=== PATIENT | female | born 1985 | race Two or more races ===

== ENCOUNTER 2024-12-03 19:45 | Inpatient (IN) | payer MEDICAID, OTHER ==
[~2024-12-03] VITALS: Ht 152.4 cm; Wt 59.6 kg
[~2024-12-03 19:45] MED LIST: DICY20TA PO; DIPH-751 PO; ESCI1TAB36 PO; GLIP5TAB21 PO; LISI-275 PO; METF-372 PO; SIMV5TAB14 PO
--- NOTE | 2024-12-03 20:09 | ED.PDOC ---
GI ASSESSMENT HPI Comments 39 year old female with a Hx of Celiac Disease, GERD, DM, Esophagitis, and Marijuana use presents to the ED for the c/c of Generalized Weakness w/ associated Hematemesis, N/V/D, Confusion, Slight Dysuria, and Diffuse ABD pain. Pt states that her symptoms started yesterday, and has since found no alleviating factors, but a worsening factor of sitting. Pt is noted to be vomiting blood at this time. Pt is noted to be A&Ox4, and answering questions a ppropriately, but is refusing to stay seated in her wheelchair. No other associated symptoms, modifiers, recent injuries or sick contacts present at this time. Chief Complaint: GI Bleed Time Seen by MD: 20:04 Primary Care Provider: CHARLES Hassan Notes: Nurses Notes, Medications, Allergies Allergies: Coded Allergies: Penicillins (Verified Allergy, Unknown, 12/03/24) Sulfa Antibiotics (Verified Allergy, Unknown, 12/03/24) Information Source: Patient, Spouse Mode of Arrival: Wheelchair Timing: Days Duration: Intermittent, Days Prehospital treatment: None Quality: Aching, Cramping Vomitus: Bloody Stool: Watery Severity: Moderate Recent: None Recent Hx of: Abdominal Operations, Diabetes Pain Location: Diffuse Modifying Factors: Exertion, Position, Movement Associated sign and symptoms: Nausea, Vomiting, Diarrhea, Hematemesis, Abdominal Pain Past Medical History PAST MEDICAL HISTORY: DM, GERD, High Lipids, HTN, Thyroid Past Medical History (Other): Celiac disease, esophagitis Surgical History: Cholecystectomy, Hysterectomy SCREENING TECHNICIAN History: No Pertinent SCREENING TECHNICIAN History Family History Family History: Family hx of DM Social History Smoker: Non-Smoker Alcohol: Denies ETOH Use Drugs: Marijuana Lives In: Home All Other Systems: Reviewed and Negative (Comprehensive systems review obtained and negative except for what is stated in the HPI.) Physical Exam General Appearance: Mild Distress HEENT: Other (Pupils and face symmetric. Moist mucous membranes.) Neck: Full Range of Motion, Normal Inspection Respiratory: Lungs Clear, No Accessory Muscle Use, No Respiratory Distress, Normal Breath Sounds Cardiovascular: No Edema, No JVD, Regular Rate/Rhythm Breast Exam: Deferred Gastrointestinal: Diffuse, Soft, Tenderness Genitalia: Deferred Pelvic: Deferred Rectal: Deferred Extremities: Normal inspection, Normal range of motion, Non-tender, No pedal edema Neurologic: Alert (Oriented x4), Normal Affect, Other (Anxious. Ambulatory.) Cerebellar Function: NOT DONE Reflexes: NOT DONE Skin: Dry, Normal Color, Warm Lymphatic: NOT DONE Was a procedure done? Was a procedure done?: No GI differential Dx Differential Diagnosis: Appendicitis, Angina/MA, Bowel Obstruction, Cholangitis, Diverticular disease, Esophageal rupture, Esophagitis, Gastritis/PUD, Gastroenteritis, GI hemorrhage, Hepatitis, Inflammatory BD, Pancreatitis, UTI, Dehydration, Diabetes/ DKA, Drug toxicity, Electrolyte Imbalance, Food Poisoning, Bacterial, Parasitic, Renal Failure, Ischemic Bowel, Mass, Anemia, Esophageal Varicies, Stress Ulcer X-Ray, Labs, Meds, VS Vital Signs Date Time Temp Pulse Resp B/P (MAP) Pulse Ox O2 Delivery O2 Flow Rate FiO2 12/03/24 23:29 175/91 12/03/24 21:47 67 12/03/24 21:06 121 20 147/114 12/03/24 20:45 98.8 121 20 147/114 (125) 98 98.8 12/03/24 20:45 Room Air* 0 21 12/03/24 19:47 98.9 110 18 151/110 96 98.9 Lab Test 12/03/24 23:11 12/03/24 22:05 12/03/24 21:13 12/03/24 20:21 Range/Units Troponin I High Sensitivity Pending 409 *H 357 *H </=34 ng/L Lactic Acid Level 3.3 *H 0.4-2.0 mmol/L White Blood Count 19.6 H 4.4-10.8 10^3/uL Red Blood Count 6.10 H 4.0-5.20 10^6/uL Hemoglobin 16.6 H 12.2-16.2 g/dL Hematocrit 48.2 H 36.0-46.0 % Mean Corpuscular Volume 79.1 L 80.0-100.0 fL Mean Corpuscular Hemoglobin 27.3 L 28.0-32.0 pg Mean Corpuscular Hemoglobin Concent 34.5 32.0-36.0 g/dL Red Cell Distribution Width 15.0 H 11.8-14.3 % Platelet Count 390 140-450 10^3/uL Mean Platelet Volume 9.9 6.9-10.8 fL Neutrophils (%) (Auto) 80.6 H 37.0-80.0 % Lymphocytes (%) (Auto) 10.0 10.0-50.0 % Monocytes (%) (Auto) 8.7 0.0-12.0 % Eosinophils (%) (Auto) 0.0 0.0-7.0 % Basophils (%) (Auto) 0.7 0.0-2.0 % Neutrophils # (Auto) 15.8 H 1.6-8.6 10 ^3/uL Lymphocytes # (Auto) 2.0 0.4-5.4 10 ^3/uL Monocytes # (Auto) 1.7 H 0-1.3 10 ^3/uL Eosinophils # (Auto) 0 0-0.8 10 ^3/uL Basophils # (Auto) 0.1 0-0.2 10 ^3/uL Nucleated Red Blood Cells 0.1 % Prothrombin Time 11.1 9.3-11.8 sec Prothrombin Time INR 1.05 0.9-1.15 Activated Partial Thromboplast Time 24.0 L 24.5-34.5 SEC Sodium Level 141 136-145 mmol/L Potassium Level 3.2 L 3.5-5.1 mmol/L Chloride Level 100 98-107 mmol/L Carbon Dioxide Level 23 20-31 mmol/L Anion Gap 18 H 5-15 Blood Urea Nitrogen 19 9-23 mg/dL Creatinine 1.52 H 0.550-1.02 mg/dL Glomerular Filtration Rate Calc 44 >90 mL/min BUN/Creatinine Ratio 12.5 10.0-20.0 Serum Glucose 206 H 74-106 mg/dL Calcium Level 11.0 H 8.7-10.4 mg/dL Total Bilirubin 1.0 0.2-1.0 mg/dL Aspartate Amino Transferase (AST) 23 13-40 U/L Alanine Aminotransferase (ALT) 22 7-40 U/L Alkaline Phosphatase 86 46-116 U/L B-Type Natriuretic Peptide 249.71 0-100 pg/mL Total Protein 8.3 H 5.7-8.2 g/dL Albumin 5.7 H 3.2-4.8 g/dL Lipase 53 12-53 U/L Current Medications Medications (Trade) Dose Ordered Sig/Zach Route Start Time Stop Time Status Last Admin Sodium Chloride 1,000 ml @ 150 mls/hr Q6H40M ONCE IV 12/03/24 20:00 12/04/24 02:39 12/03/24 21:06 Ondansetron HCl (Zofran) 4 mg ONCE ONCE IV 12/03/24 20:00 12/03/24 20:03 DC 12/03/24 21:05 Pantoprazole Sodium (Protonix) 40 mg ONCE ONCE IV 12/03/24 20:00 12/03/24 20:03 DC 12/03/24 21:05 Morphine Sulfate 4 mg ONCE ONCE IV 12/03/24 20:00 12/03/24 20:03 DC 12/03/24 21:06 Potassium Chloride (Klor-Con Tablet) 20 meq ONCE ONCE PO 12/03/24 22:15 12/03/24 22:42 DC 12/03/24 23:15 Amlodipine Besylate (Norvasc Tablet) 5 mg ONCE ONCE PO 12/03/24 22:15 12/03/24 22:42 DC 12/03/24 23:29 Metronidazole 100 ml @ 100 mls/hr ONCE ONCE IV 12/03/24 22:15 12/03/24 23:14 DC 12/03/24 23:02 Ondansetron HCl (Zofran) 4 mg Q4HP PRN IV 12/03/24 22:15 12/03/24 22:53 PROCEDURE(s): ABPL - CT AB PEL WO CON-NO ORAL OR IV REASON: ab pain, n/v/d, hematemesis ORDER NUMBER(s): [id number], ACCESSION NUMBER(s): [id number] Exam: CT CT AB PEL WO CON-NO ORAL OR IV History: ab pain, n/v/d, hematemesis Comparison Study: None Technique: Multidetector spiral CT of the abdomen was performed from lung bases to pubic symphysis. Imaging was performed without IV contrast. Axial, coronal and sagittal multiplanar reformats were obtained from the axial data set by the technologist. Radiation Dose : 1. Abdomen/Pelvis: CTDIvol 5.5 mGy, DLP 339.2 mGy*cm. Findings: Evaluation of solid organs is limited due to lack of intravenous contrast use. Lung Bases: Unremarkable. Liver: Unremarkable. Gallbladder and Biliary Tree: Post cholecystectomy changes. Spleen: Unremarkable. Pancreas: Mild atrophy. Adrenal Glands: Unremarkable Kidneys: No urinary stone or obstruction. Bladder: Mild posterior wall thickening is suggested. No filling defect. Bowel: No wall thickening or obstruction. Normal appendix. Ascites: Absent Lymphadenopathy: No obvious adenopathy. Abdominal Wall and Mesentery: Unremarkable. Vasculature: Unremarkable noncontrast appearance. Pelvic Organs: Absent uterus. No evident adnexal mass. Musculoskeletal: No acute findings. IMPRESSION: 1. No acute abdominopelvic abnormality, evidence of urinary stone or obstruction. Radiation optimization: All CT scans at this facility use at least one of these dose optimization techniques: automated exposure control mA and/or kV adjustment per patient size (includes targeted exams where dose is matched to clinical indication) or iterative reconstruction. X-Ray, Labs, Meds, VS Comment 89 year old female with a Hx of Celiac Disease, GERD, DM, Esophagitis, and Marijuana use presents to the ED for the c/c of Generalized Weakness w/ associated Hematemesis, N/V/D, Confusion, Slight Dysuria, and Diffuse ABD pain Initial vitals remarkable for heart rate 110, BP 150/110 Exam remarkable for diffuse abdominal tenderness and active with a emesis Rhythm strip independently interpreted by me: Sinus tach, rate 110, no ectopy. CT abdomen and pelvis IMPRESSION: 1. No acute abdominopelvic abnormality, evidence of urinary stone or obstruction. CBC remarkable for WBC 19.6, hemoglobin 6 15.6, hematocrit 48.2, CMP remarkable for for potassium 3.2, creatinine 1.52, lipase normal, BNP 249.71, troponin 357 Patient treated with the following in the ED: 30 cc/kilogram IV normal saline bolus, morphine 4 mg IV, Zofran 4 mg IV, Protonix 40 mg IV On re-evaluation, patient states pain has improved. Plan is to admit the patient for pain and emesis control, GI and Cardiology evaluation. Time of 1ST Reevaluation: 20:34 Reevaluation 1ST: Unchanged Patient Education/Counseling: Diagnosis, Treatment, Need For Follow Up Family Education/Counseling: Diagnosis, Treatment, Need For Follow Up SEPSIS Sepsis Screen Date sepsis recognized/suspect: Dec 03, 2024 Time Sepsis recognized/suspect: 1952 Recent Procedure: No On Antibiotic Therapy: No Respiratory Rate >20: No Heart Rate >90: No Temp<36 C (96.8 F) or >38.3 C: No SBP <90 or MAP <65 mmHG: No New Acute Mental Status Change: No Is the patient on CPAP, BIPAP,: No Physician Orders Urinalysis (12/03/24 19:59) Sodium Chloride 0.9% (12/03/24 20:00) Ct Ab Pel Wo Con-No Oral Or Iv (12/03/24 19:59) Troponin-I Hs (12/03/24 22:59) Blood Culture (12/03/24 21:41) Pantoprazole (Protonix) (12/04/24 10:00) Atorvastatin (Lipitor) (12/04/24 22:00) Metoprolol Tartrate Tablet (Lopressor Ta (12/04/24 10:00) Amlodipine Tablet (Norvasc Tablet) (12/04/24 10:00) Consistent Carb(Ccho)Diabetes (12/04/24 Breakfast) Metronidazole 500mg/100ml (Flagyl 500mg/ (12/04/24 06:00) Glucose Blood (Accu-Chek Comfort Curve T (12/04/24 07:00) Insulin R (Human) (Insulin R) (12/04/24 22:00) Insulin R (Human) (Insulin R) (12/04/24 07:00) Dextrose 50% Syringe (12/03/24 22:15) Allergies (12/03/24 22:01) Code Status (12/03/24 22:01) Sodium Chloride Lock (Saline Lock Ns) (12/04/24 06:00) Oxygen Per Hour (12/03/24 22:01) Hydrocodone-Acet 5/325mg Tab ([place] 5/32 (12/03/24 22:15) Ondansetron Hcl (Zofran) (12/03/24 22:15) Docusate Sodium Capsule (Colace Capsule) (12/03/24 22:15) Complete Blood Count (12/04/24 04:00) Comprehensive Metabolic Panel (12/04/24 04:00) Condition: Serious (12/03/24 22:01) Acetaminophen Tablet (Tylenol Tablet) (12/03/24 22:15) Bedrest With Bathroom Privileg (12/03/24 22:01) Sequential Compression Device (12/03/24 ) * Gi Dvh Comic Book Designer (12/03/24 22:18) Admit (12/03/24 23:35) Nitroglycerin Sublingual (Ntrostat Subli (12/03/24 23:45) Morphine Sulfate Injection (12/03/24 23:45) Stat Ekg For Chest Pain (12/03/24 23:35) Notify Of Changes From Base (12/03/24 23:35) Web Mobile Designer For 24 Hours (12/03/24 23:35) Emergency Dysrhythmia Protocol (12/03/24 23:35) Rhythm Strips Once Every Shift (12/03/24 23:35) Oxygen By Nasal Cannula (12/03/24 23:35) Vital Signs Date Time Temp Pulse Resp B/P (MAP) Pulse Ox O2 Delivery O2 Flow Rate FiO2 12/03/24 23:29 175/91 12/03/24 21:47 67 12/03/24 21:06 121 20 147/114 12/03/24 20:45 98.8 121 20 147/114 (125) 98 98.8 12/03/24 20:45 Room Air* 0 21 12/03/24 19:47 98.9 110 18 151/110 96 98.9 Laboratory Tests Test 12/03/24 20:21 12/03/24 22:05 White Blood Count 19.6 10^3/uL (4.4-10.8) H Lactic Acid Level 3.3 mmol/L (0.4-2.0) *H Medications Medications Dose Ordered Sig/Zach Route Start Time Stop Time Status Last Admin Dose Admin Amlodipine Besylate 5 mg ONCE ONCE PO 12/03/24 22:15 12/03/24 22:42 DC 12/03/24 23:29 Metronidazole 100 ml @ 100 mls/hr ONCE ONCE IV 12/03/24 22:15 12/03/24 23:14 DC 12/03/24 23:02 Morphine Sulfate 4 mg ONCE ONCE IV 12/03/24 20:00 12/03/24 20:03 DC 12/03/24 21:06 Ondansetron HCl 4 mg ONCE ONCE IV 12/03/24 20:00 12/03/24 20:03 DC 12/03/24 21:05 Ondansetron HCl 4 mg Q4HP PRN IV 12/03/24 22:15 12/03/24 22:53 Pantoprazole Sodium 40 mg ONCE ONCE IV 12/03/24 20:00 12/03/24 20:03 DC 12/03/24 21:05 Potassium Chloride 20 meq ONCE ONCE PO 12/03/24 22:15 12/03/24 22:42 DC 12/03/24 23:15 Sodium Chloride 1,000 ml @ 150 mls/hr Q6H40M ONCE IV 12/03/24 20:00 12/04/24 02:39 12/03/24 21:06 Departure 1 Departure Time of Disposition: 21:43 Impression: Primary Impression: Abdominal pain Additional Impressions: GI bleed Elevated troponin Disposition: ADMITTED INPATIENT Admit to: Tele Condition: Guarded Critical Care Note Critical Care Time?: Yes (45 min-critical care time only) Critical care comment: Critical care time including multiple bedside re-evaluations, review of lab and imaging studies, and discussion of the case with the admitting provider. Patient is high risk for hemodynamic decompensation. Stability Stability form required: No Heart Score Heart Score: Heart Score Response (Comments) Value History N/A 0 EKG N/A 0 Age N/A 0 Risk Factors N/A 0 Troponin N/A 0 Total 0 I personally scribed for JOCELYNE RAE MD ([email or web address]) on 12/03/24 at 20:09. Electronically submitted by Dominick Kim ([email or web address]). I personally scribed for JOCELYNE RAE MD ([email or web address]) on 12/03/24 at 23:40. Electronically submitted by Dominick Kim ([email or web address]). JOCELYNE RAE MD Dec 03, 2024 20:09
[2024-12-03 20:51] LABS: Hematocrit 48.2 % (36.0-46.0); Hemoglobin 16.6 g/dL (12.2-16.2); Mean Corpuscular Hemoglobin 27.3 pg (28.0-32.0); Mean Corpuscular Volume 79.1 fL (80.0-100.0); Nucleated Red Blood Cells % 0.1 %
[2024-12-03] MEDS: ONDANSETRON HCL 4 MG/2 ML VIAL IV ONE (21:05)
[2024-12-03] MEDS: PANTOPRAZOLE 40 MG/10 ML VIAL INJ IV ONE (21:05)
[2024-12-03] MEDS: MORPHINE SULFATE 4 MG/ML SYR/VIAL IV ONE (21:06)
[2024-12-03] MEDS: SODIUM CHLORIDE 0.9% 1,000 ML IV ONE (21:06)
[2024-12-03 21:07] LABS: INR 1.05 (0.9-1.15); Partial Thromboplastin Time 24.0 SEC (24.5-34.5); Prothrombin Time 11.1 sec (9.3-11.8)
[2024-12-03 21:08] LABS: Alanine Aminotransferase 22 U/L (7-40); Alkaline Phosphatase 86 U/L (46-116); Anion Gap 18 (5-15); BUN/Creatinine Ratio 12.5 (10.0-20.0); Blood Urea Nitrogen 19 mg/dL (9-23); Carbon Dioxide 23 mmol/L (20-31); Chloride 100 mmol/L (98-107); Sodium 141 mmol/L (136-145)
[2024-12-03 21:09] LABS: Bilirubin, Total 1.0 mg/dL (0.2-1.0)
[2024-12-03 21:12] LABS: Albumin 5.7 g/dL (3.2-4.8); Calcium 11.0 mg/dL (8.7-10.4); Glucose 206 mg/dL (74-106); Potassium 3.2 mmol/L (3.5-5.1); Total Protein 8.3 g/dL (5.7-8.2)
--- NOTE | 2024-12-03 22:03 | ECG ---
[facility] Test Date: 2024-12-03 Test Time: 21:47:49 Pat Name: DOROTHEA KENNEDY Department: ER Room: 0298T Gender: F Documentation Supervisor: ANGEL : 1985 Requested By: JOCELYNE CHANEL Order Number: [id number] Reading MD: Juan Royal Measurements Intervals Carbon Rate: 67 P: 78 NH: 134 QRS: 48 QRSD: 81 T: 37 QT: 595 QTc: 629 Interpretive Statements Sinus rhythm Probable left atrial enlargement Probable anteroseptal infarct, old Minimal ST depression, anterolateral leads Prolonged QT interval Electronically Signed On 12-06-2024 22:03:26 PDT by Juan Royal Please click the below link to view image of tracing.
[2024-12-03] MEDS ORDERED: DOCUSATE SOD 100 MG CAP PO PRN (22:15)
[2024-12-03] MEDS ORDERED: ACETAMINOPHEN 325 MG TAB PO PRN (22:15)
[2024-12-03] MEDS ORDERED: DEXTROSE (50%) 50ML SYRG IV PRN (22:15)
--- NOTE | 2024-12-03 22:15 | DVH ---
Exam: CT CT AB PEL WO CON-NO ORAL OR IV History: ab pain, n/v/d, hematemesis Comparison Study: None Technique: Multidetector spiral CT of the abdomen was performed from lung bases to pubic symphysis. I maging was performed without IV contrast. Axial, coronal and sagittal multiplanar reformats were obta ined from the axial data set by the technologist. Radiation Dose : 1. Abdomen/Pelvis: CTDIvol 5.5 mGy, DLP 339.2 mGy*cm. Findings: Evaluation of solid organs is limited due to lack of intravenous contrast use. Lung Bases: Unremarkable. Liver: Unremarkable. Gallbladder and Biliary Tree: Post cholecystectomy changes. Spleen: Unremarkable. Pancreas: Mild atrophy. Adrenal Glands: Unremarkable Kidneys: No urinary stone or obstruction. Bladder: Mild posterior wall thickening is suggested. No filling defect. Bowel: No wall thickening or obstruction. Normal appendix. Ascites: Absent Lymphadenopathy: No obvious adenopathy. Abdominal Wall and Mesentery: Unremarkable. Vasculature: Unremarkable noncontrast appearance. Pelvic Organs: Absent uterus. No evident adnexal mass. Musculoskeletal: No acute findings. IMPRESSION: 1. No acute abdominopelvic abnormality, evidence of urinary stone or obstruction. Radiation optimization: All CT scans at this facility use at least one of these dose optimization yoko hniques: automated exposure control mA and/or kV adjustment per patient size (includes targeted exam s where dose is matched to clinical indication) or iterative reconstruction.
[2024-12-03 22:40] VITALS: PULSE 89; RESP 16; O2SAT 99
[2024-12-03 22:46] LABS: Lactic Acid w/Reflex 3.3 mmol/L (0.4-2.0)
[2024-12-03] MEDS: ONDANSETRON HCL 4 MG/2 ML VIAL IV PRN (22:53)
[2024-12-03] MEDS ORDERED: ONDANSETRON HCL 4 MG/2 ML VIAL IV PRN (23:00)
[2024-12-03] MEDS: POTASSIUM CHL 20 Meq TABLET PO ONE (23:15)
--- NOTE | 2024-12-03 23:37 | DVHHP2 ---
History of Present Illness Reason for Visit: GI bleed History of Present Illness The patient is a 39-year-old female with multiple past medical history including DM, GERD, thyroid disease, and hypertension who presented to [facility] ED with complaint of generalized weakness. Patient reports she has been experiencing generalized weakness associated with diffuse abdominal pain rating 8/10 numeric scale, hematemesis, nausea, diarrhea, slight dysuria, and confusion state. Patient was seen and evaluated in the ED, laboratory data shows WBC 19.6, hemoglobin 16.6, hematocrit 48.2, platelets 390, sodium 141, potassium 3.2, BUN 19, creatinine 1.52, glucose 206, calcium 11.0, lipase 53, BNP 249.71, protein 8.3, albumin 5.7, troponin 409, lactic acid 3.3 trending down to 1.2, blood pressure 151/110 trending down to 155/91, heart rate 121 trending down to 80, temperature 98.8 F, O2 saturation 98% on room air. Abdomen/pelvis CT showed no acute abdominopelvic abnormality, evidence of urinary stones obstruction. Patient was given morphine sulfate 4 mg IV, Zofran 4 mg IV, please see medication orders section in the computer. On my assessment, patient denied chest pain, no headache, no dizziness, no diaphoresis, no shortness of breaths, no abdominal pain at this moment, no nausea, no vomiting, no fever, no chills. Patient was admitted for further evaluation and medical management. Past Medical History DM, GERD, High Lipids, HTN, Thyroid, Celiac disease, esophagitis Past Surgical History Cholecystectomy, Hysterectomy Family History Reviewed, noncontributory to the management of this case. Past Social History The patient lives at home, denies smoking, denies alcohol use, uses marijuana. Review of Systems Constitutional: Yes: Weakness; No: Fever, Chills, Sweats, Malaise, Other Eyes: No: Pain, Vision change, Conjunctivae inflammation, Eyelid inflammation, Other, Redness ENT: No: Ear pain, Ear discharge, Nose pain, Nose discharge, Nose congestion, Mouth pain, Mouth swelling, Throat pain, Throat swelling, Other Respiratory: No: Cough, Dry, Shortness of breath, SOB with excertion, Wheezing, Hemoptysis, Pleuritic Pain, Sputum, Wheezing, Other Cardiovascular: No: Chest Pain, Palpitations, Orthopnea, Paroxysmal Noc. Dyspnea, Edema, Lt Headedness, Other Gastrointestinal: Nausea, Vomiting, Abdominal Pain, Other (Hematemesis); No: Diarrhea, Constipation, Melena, Hematochezia Genitourinary: Dysuria; No Frequency, No Incontinence, No Hematuria, No Retention, No Other Musculoskeletal: No: other, neck pain, shoulder pain, arm pain, back pain, hand pain, leg pain, foot pain Skin: No: Rash, Lesions, Jaundice, Bruising, Other Neurological: No: Weakness, Numbness, Incoordination, Change in speech, Confusi on, Seizures, Other Allergies: Coded Allergies: Penicillins (Verified Allergy, Unknown, 12/03/24) Sulfa Antibiotics (Verified Allergy, Unknown, 12/03/24) Medications Current Medications Medications Dose Ordered Sig/Zach Route Start Time Stop Time Status Last Admin Dose Admin Pantoprazole Sodium 40 mg BID IV 12/04/24 10:00 Atorvastatin Calcium 20 mg HS PO 12/04/24 22:00 Metoprolol Tartrate 25 mg BID PO 12/04/24 10:00 Amlodipine Besylate 5 mg DAILY PO 12/04/24 10:00 Metronidazole 100 ml @ 100 mls/hr Q8HR IV 12/04/24 06:00 Diagnostic Test (Pha) 1 strip ACHS 12/04/24 07:00 Insulin Human Regular HS SC 12/04/24 22:00 Insulin Human Regular AC SC 12/04/24 07:00 Dextrose 50 ml UD PRN IV 12/03/24 22:15 Sodium Chloride 10 ml Q8HR IV 12/04/24 06:00 Acetaminophen/ Hydrocodone Bitart 1 tab Q4HP PRN PO 12/03/24 22:15 Ondansetron HCl 4 mg Q4HP PRN IV 12/03/24 22:15 12/03/24 22:53 4 MG Docusate Sodium 100 mg BIDPRN PRN PO 12/03/24 22:15 Acetaminophen 650 mg Q6HP PRN PO 12/03/24 22:15 Exam Vital Signs Vital Signs Date Time Temp Pulse Resp B/P (MAP) Pulse Ox O2 Delivery O2 Flow Rate FiO2 12/03/24 23:29 175/91 12/03/24 21:47 67 12/03/24 21:06 20 12/03/24 20:45 98.8 98 98.8 12/03/24 20:45 Room Air* 0 21 General Appearance: Alert, Oriented X3, Cooperative, No acute distress HEENT: Atraumatic, PERRLA, EOMI, Mucous membr. moist/pink Respiratory: Clear to auscultation, Normal air movement Cardiovascular: Regular rate, Normal S1, Normal S2, No murmurs Abdominal: Normal bowel sounds, Soft, No hepatospenomegaly, No masses, Other (Reports tenderness) Extremities: No clubbing, No cyanosis, No edema, Normal pulses, No tenderness/swelling Skin: No rashes, No breakdown, No significant lesion Neuro: Normal speech, Normal tone, Sensation intact, Cranial nerves 3-12 NL, Reflexes 2+, Other (Generalized weakness) Psych/Mental Status: Mental status NL, Mood NL Labs/Xrays Labs Test 12/03/24 23:11 12/03/24 22:05 12/03/24 20:21 Range/Units Lactic Acid Level 3.3 *H 0.4-2.0 mmol/L White Blood Count 19.6 H 4.4-10.8 10^3/uL Red Blood Count 6.10 H 4.0-5.20 10^6/uL Hemoglobin 16.6 H 12.2-16.2 g/dL Hematocrit 48.2 H 36.0-46.0 % Mean Corpuscular Volume 79.1 L 80.0-100.0 fL Mean Corpuscular Hemoglobin 27.3 L 28.0-32.0 pg Mean Corpuscular Hemoglobin Concent 34.5 32.0-36.0 g/dL Red Cell Distribution Width 15.0 H 11.8-14.3 % Platelet Count 390 140-450 10^3/uL Mean Platelet Volume 9.9 6.9-10.8 fL Neutrophils (%) (Auto) 80.6 H 37.0-80.0 % Lymphocytes (%) (Auto) 10.0 10.0-50.0 % Monocytes (%) (Auto) 8.7 0.0-12.0 % Eosinophils (%) (Auto) 0.0 0.0-7.0 % Basophils (%) (Auto) 0.7 0.0-2.0 % Neutrophils # (Auto) 15.8 H 1.6-8.6 10 ^3/uL Lymphocytes # (Auto) 2.0 0.4-5.4 10 ^3/uL Monocytes # (Auto) 1.7 H 0-1.3 10 ^3/uL Eosinophils # (Auto) 0 0-0.8 10 ^3/uL Basophils # (Auto) 0.1 0-0.2 10 ^3/uL Nucleated Red Blood Cells 0.1 % Prothrombin Time 11.1 9.3-11.8 sec Prothrombin Time INR 1.05 0.9-1.15 Activated Partial Thromboplast Time 24.0 L 24.5-34.5 SEC Sodium Level 141 136-145 mmol/L Potassium Level 3.2 L 3.5-5.1 mmol/L Chloride Level 100 98-107 mmol/L Carbon Dioxide Level 23 20-31 mmol/L Anion Gap 18 H 5-15 Blood Urea Nitrogen 19 9-23 mg/dL Creatinine 1.52 H 0.550-1.02 mg/dL Glomerular Filtration Rate Calc 44 >90 mL/min BUN/Creatinine Ratio 12.5 10.0-20.0 Serum Glucose 206 H 74-106 mg/dL Calcium Level 11.0 H 8.7-10.4 mg/dL Total Bilirubin 1.0 0.2-1.0 mg/dL Aspartate Amino Transferase (AST) 23 13-40 U/L Alanine Aminotransferase (ALT) 22 7-40 U/L Alkaline Phosphatase 86 46-116 U/L B-Type Natriuretic Peptide 249.71 0-100 pg/mL Total Protein 8.3 H 5.7-8.2 g/dL Albumin 5.7 H 3.2-4.8 g/dL Lipase 53 12-53 U/L PATIENT: DOROTHEA KENNEDY ACCT: [id number] UNIT: [id number] : 1985 LOC: ER ROOM / BED: / AGE / SEX: 39 / F ADM STATUS: REG ER SERVICE 58 ORDERING PHYSICIAN: JOCELYNE RAE MD PROCEDURE(s): ABPL - CT AB PEL WO CON-NO ORAL OR IV REASON: ab pain, n/v/d, hematemesis ORDER NUMBER(s): [id number], ACCESSION NUMBER(s): [id number] Exam: CT CT AB PEL WO CON-NO ORAL OR IV History: ab pain, n/v/d, hematemesis Comparison Study: None Technique: Multidetector spiral CT of the abdomen was performed from lung bases to pubic symphysis. Imaging was performed without IV contrast. Axial, coronal and sagittal multiplanar reformats were obtained from the axial data set by the technologist. Radiation Dose: 1. Abdomen/Pelvis: CTDIvol 5.5 mGy, DLP 339.2 mGy*cm. Findings: Evaluation of solid organs is limited due to lack of intravenous contrast use. Lung Bases: Unremarkable. Liver: Unremarkable. Gallbladder and Biliary Tree: Post cholecystectomy changes. Spleen: Unremarkable. Pancreas: Mild atrophy. Adrenal Glands: Unremarkable Kidneys: No urinary stone or obstruction. Bladder: Mild posterior wall thickening is suggested. No filling defect. Bowel: No wall thickening or obstruction. Normal appendix. Ascites: Absent Lymphadenopathy: No obvious adenopathy. Abdominal Wall and Mesentery: Unremarkable. Vasculature: Unremarkable noncontrast appearance. Pelvic Organs: Absent uterus. No evident adnexal mass. Musculoskeletal: No acute findings. IMPRESSION: 1. No acute abdominopelvic abnormality, evidence of urinary stone or obstruction. SEPSIS Sepsis Screen Date sepsis recognized/suspect: Dec 03, 2024 Time Sepsis recognized/suspect: 1952 Recent Procedure: No On Antibiotic Therapy: No Respiratory Rate >20: No Heart Rate >90: No Temp<36 C (96.8 F) or >38.3 C: No SBP <90 or MAP <65 mmHG: No New Acute Mental Status Change: No Is the patient on CPAP, BIPAP,: No Physician Orders Urinalysis (12/03/24 19:59) Sodium Chloride 0.9% (12/03/24 20:00) Ct Ab Pel Wo Con-No Oral Or Iv (12/03/24 19:59) Troponin-I Hs (12/03/24 22:59) Blood Culture (12/03/24 21:41) Pantoprazole (Protonix) (12/04/24 10:00) Atorvastatin (Lipitor) (12/04/24 22:00) Metoprolol Tartrate Tablet (Lopressor Ta (12/04/24 10:00) Amlodipine Tablet (Norvasc Tablet) (12/04/24 10:00) Consistent Carb(Ccho)Diabetes (12/04/24 Breakfast) Metronidazole 500mg/100ml (Flagyl 500mg/ (12/04/24 06:00) Glucose Blood (Accu-Chek Comfort Curve T (12/04/24 07:00) Insulin R (Human) (Insulin R) (12/04/24 22:00) Insulin R (Human) (Insulin R) (12/04/24 07:00) Dextrose 50% Syringe (12/03/24 22:15) Allergies (12/03/24 22:01) Code Status (12/03/24 22:01) Sodium Chloride Lock (Saline Lock Ns) (12/04/24 06:00) Oxygen Per Hour (12/03/24 22:01) Hydrocodone-Acet 5/325mg Tab ([place] 5/32 (12/03/24 22:15) Ondansetron Hcl (Zofran) (12/03/24 22:15) Docusate Sodium Capsule (Colace Capsule) (12/03/24 22:15) Complete Blood Count (12/04/24 04:00) Comprehensive Metabolic Panel (12/04/24 04:00) Condition: Serious (12/03/24 22:01) Acetaminophen Tablet (Tylenol Tablet) (12/03/24 22:15) Bedrest With Bathroom Privileg (12/03/24 22:01) Sequential Compression Device (12/03/24 ) * [facility] Clinical Support Tech (12/03/24 22:18) Admit (12/03/24 23:35) Nitroglycerin Sublingual (Ntrostat Subli (12/03/24 23:45) Morphine Sulfate Injection (12/03/24 23:45) Stat Ekg For Chest Pain (12/03/24 23:35) Notify Md Of Changes From Base (12/03/24 23:35) Geotechnical Engineer For 24 Hours (12/03/24 23:35) Emergency Dysrhythmia Protocol (12/03/24 23:35) Rhythm Strips Once Every Shift (12/03/24 23:35) Oxygen By Nasal Cannula (12/03/24 23:35) Vital Signs Date Time Temp Pulse Resp B/P (MAP) Pulse Ox O2 Delivery O2 Flow Rate FiO2 12/03/24 23:29 175/91 12/03/24 21:47 67 12/03/24 21:06 121 20 147/114 12/03/24 20:45 98.8 121 20 147/114 (125) 98 98.8 12/03/24 20:45 Room Air* 0 21 12/03/24 19:47 98.9 110 18 151/110 96 98.9 Laboratory Tests Test 12/03/24 20:21 12/03/24 22:05 White Blood Count 19.6 10^3/uL (4.4-10.8) H Lactic Acid Level 3.3 mmol/L (0.4-2.0) *H Medications Medications Dose Ordered Sig/Zach Route Start Time Stop Time Status Last Admin Dose Admin Amlodipine Besylate 5 mg ONCE ONCE PO 12/03/24 22:15 12/03/24 22:42 DC 12/03/24 23:29 5 MG Metronidazole 100 ml @ 100 mls/hr ONCE ONCE IV 12/03/24 22:15 12/03/24 23:14 DC 12/03/24 23:02 100 MLS/HR Morphine Sulfate 4 mg ONCE ONCE IV 12/03/24 20:00 12/03/24 20:03 DC 12/03/24 21:06 4 MG Ondansetron HCl 4 mg ONCE ONCE IV 12/03/24 20:00 12/03/24 20:03 DC 12/03/24 21:05 4 MG Ondansetron HCl 4 mg Q4HP PRN IV 12/03/24 22:15 12/03/24 22:53 4 MG Pantoprazole Sodium 40 mg ONCE ONCE IV 12/03/24 20:00 12/03/24 20:03 DC 12/03/24 21:05 40 MG Potassium Chloride 20 meq ONCE ONCE PO 12/03/24 22:15 12/03/24 22:42 DC 12/03/24 23:15 20 MEQ Sodium Chloride 1,000 ml @ 150 mls/hr Q6H40M ONCE IV 12/03/24 20:00 12/04/24 02:39 12/03/24 21:06 150 MLS/HR Assessment/Plan Assessment/Plan Acute abdominal pain GI bleed Hypokalemia Acute renal injury Generalized weakness Elevated troponin Elevated brain natriuretic peptide (BNP) level Sepsis, unspecified organisms Diabetes mellitus with hyperglycemia Plan 1. Admit to telemetry unit 2. Breathing treatment 3. Pain control management 4. IV antibiotic management 5. Management of fluids and electrolytes 6. Consultation for Cardiology/GI 7. Diagnostic test abdomen/pelvis CT 8. DVT prophylaxis on SCDs 9. Repeat labs CBC, CMP in a.m. 10. Home medication reviewed and reconciled 11. Continue with current medical management 12. Treatment plan discussed with patient and RN. Patient verbalized understanding. Plan discussed with: Patient, Other (RN) My Orders Orders - ALEXA MCGRAW DNP Procedure Category Date Status Time Pantoprazole PHA 12/04/24 In Process (Protonix) 10:00 Atorvastatin (Lipitor) PHA 12/04/24 In Process 22:00 Metoprolol Tartrate PHA 12/04/24 In Process Tablet (Lopressor Ta 10:00 Amlodipine Tablet PHA 12/04/24 In Process (Norvasc Tablet) 10:00 Consistent DIET 12/04/24 Transmitted Carb(Ccho)Diabetes Breakfast Metronidazole PHA 12/04/24 In Process 500mg/100ml (Flagyl 06:00 Glucose Blood PHA 12/04/24 In Process (Accu-Chek Comfort 07:00 Insulin R (Human) PHA 12/04/24 In Process (Insulin R) 22:00 Insulin R (Human) PHA 12/04/24 In Process (Insulin R) 07:00 Dextrose 50% Syringe PHA 12/03/24 In Process 22:15 Allergies DARSHANA 12/03/24 In Process 22:01 Code Status CODE 12/03/24 Transmitted 22:01 Sodium Chloride Lock PHA 12/04/24 In Process (Saline Lock Ns) 06:00 Oxygen Per Hour RT 12/03/24 Transmitted 22:01 Hydrocodone-Acet PHA 12/03/24 In Process 5/325mg Tab ([place]aver 22:15 Ondansetron Hcl PHA 12/03/24 In Process (Zofran) 22:15 Docusate Sodium PHA 12/03/24 In Process Capsule (Colace 22:15 Complete Blood Count LAB 12/04/24 Verified 04:00 Comprehensive LAB 12/04/24 Verified Metabolic Panel 04:00 Condition: Serious DARSHANA 12/03/24 In Process 22:01 Acetaminophen Tablet PHA 12/03/24 In Process (Tylenol Tablet) 22:15 Bedrest With Bathroom DARSHANA 12/03/24 In Process Privileg 22:01 Sequential DARSHANA 12/03/24 In Process Compression Device * [facility] Clinical Support Tech CONS 12/03/24 Transmitted 22:18 Admit ADMIT 12/03/24 Verified 23:35 Nitroglycerin [facility] 12/03/24 Verified Sublingual (Ntrostat 23:45 Morphine Sulfate [facility] 12/03/24 Verified Injection 23:45 Stat Ekg For Chest [facility] 12/03/24 Verified Pain 23:35 Notify Md Of Changes [facility] 12/03/24 Verified From Base 23:35 Geotechnical Engineer For [facility] 12/03/24 Verified 24 Hours 23:35 Emergency Dysrhythmia [facility] 12/03/24 Verified Protocol 23:35 Rhythm Strips Once [facility] 12/03/24 Verified Every Shift 23:35 Oxygen By Nasal RT 12/03/24 Verified Cannula 23:35 Problem List: (1) Acute abdominal pain (2) GI bleed (3) Hypokalemia (4) Acute renal injury (5) Generalized weakness (6) Elevated troponin (7) Elevated brain natriuretic peptide (BNP) level (8) Sepsis, unspecified organism (9) Diabetes mellitus with hyperglycemia Date of Service: Dec 03, 2024 Billing Provider: ALEXA MCGRAW DNP Common Visit Codes: 52317-[id number] INP/OBS CARE (HIGH) ALEXA MCGRAW DNP Dec 03, 2024 23:37
[2024-12-03] MEDS ORDERED: NITROGLYCERIN 0.4 MG SL TAB SL PRN (23:45)
[2024-12-04] VITALS (10 sets, daily range): BP systolic 92–185; BP diastolic 57–115; PULSE 66–98; RESP 16–20; TEMP 98–98.8; O2SAT 94–98
[2024-12-04] MEDS: HYDROcodone-ACET 5/325MG TAB PO PRN (00:53)
[2024-12-04] MEDS: MORPHINE SULFATE INJ 2 MG/ml SYRG IV PRN ×2 (02:26→08:19)
[2024-12-04] MEDS ORDERED: VANCOMYCIN PER PHARMACY 0 MG IV SCH (03:00)
[2024-12-04] MEDS: hydrALAZINE HCL 20 MG/ML VL IV PRN (04:02)
[2024-12-04] MEDS: PROCHLORPERAZINE EDISYLATE 5 MG/ML 2ML VIAL IV PRN (04:05)
[2024-12-04] MEDS: SODIUM CHLOR 0.9% PF (SALINE LOCK) 10ML VIAL/SYR IV SCH (06:04)
[2024-12-04] MEDS: InsuLIN REG 1unit/0.01ml Soln (100units/ml) SC SCH ×2 (06:39→21:39)
[2024-12-04] MEDS: ACCU-CHEK COMFORT CURVE STRIP VI SCH (06:45)
[2024-12-04 07:34] LABS: Hematocrit 40.9 % (36.0-46.0); Hemoglobin 14.4 g/dL (12.2-16.2); Mean Corpuscular Hemoglobin 27.8 pg (28.0-32.0); Mean Corpuscular Volume 79.1 fL (80.0-100.0); Nucleated Red Blood Cells % 0.0 %
[2024-12-04 07:50] LABS: Alanine Aminotransferase 19 U/L (7-40); Alkaline Phosphatase 67 U/L (46-116); Anion Gap 13 (5-15); BUN/Creatinine Ratio 18.3 (10.0-20.0); Blood Urea Nitrogen 20 mg/dL (9-23); Calcium 9.5 mg/dL (8.7-10.4); Carbon Dioxide 29 mmol/L (20-31); Chloride 103 mmol/L (98-107); Sodium 145 mmol/L (136-145); Total Protein 6.8 g/dL (5.7-8.2)
[2024-12-04 07:51] LABS: Bilirubin, Total 0.8 mg/dL (0.2-1.0)
[2024-12-04 07:53] LABS: Albumin 4.8 g/dL (3.2-4.8); Glucose 151 mg/dL (74-106); Potassium 2.7 mmol/L (3.5-5.1)
--- NOTE | 2024-12-04 08:06 | DVHINCON2 ---
Date of service: Dec 04, 2024 Referring Physician Pat Reason for Consultation GI bleeding History of Present Illness The patient is a 39-year-old female with past medical history significant for GERD, diabetes, hypothyroidism, history of celiac disease, admitted with nausea and vomiting with bloody emesis. Hemoglobin is normal. Patient states that she had a severe dizziness and nausea vomiting with exercise. Patient states that she has had an episode of this in the past pureed after having significant nausea and vomiting she had bloody emesis. She denies any aspirin or NSAID use, melena, hematochezia. She denies any dysphagia or odynophagia. She has diffuse abdominal pain. GI consultations obtained for evaluation. Patient was started on antiemetics and proton pump inhibitor. Followed by the gastro group for her celiac disease. Past Medical History As above Past Surgical History Cholecystectomy Hysterectomy Family History No gastrointestinal diseases or malignancies Social History Regular marijuana use No tobacco or alcohol use Allergies: Coded Allergies: Penicillins (Verified Allergy, Unknown, 12/03/24) Sulfa Antibiotics (Verified Allergy, Unknown, 12/03/24) Current Medications Current Medications Medications (Trade) Dose Ordered Sig/Zach Route PRN Reason Start Time Stop Time Status Last Admin Pantoprazole Sodium (Protonix) 40 mg BID IV 12/04/24 10:00 Atorvastatin Calcium (Lipitor) 20 mg HS PO 12/04/24 22:00 Metoprolol Tartrate (Lopressor Tablet) 25 mg BID PO 12/04/24 10:00 Amlodipine Besylate (Norvasc Tablet) 5 mg DAILY PO 12/04/24 10:00 Metronidazole 100 ml @ 100 mls/hr Q8HR IV 12/04/24 06:00 12/04/24 06:04 Diagnostic Test (Pha) (Accu-Chek Comfort Curve T) 1 strip ACHS 12/04/24 07:00 12/04/24 06:45 Insulin Human Regular (InsuLIN R) HS SC 12/04/24 22:00 Insulin Human Regular (InsuLIN R) AC SC 12/04/24 07:00 12/04/24 06:39 Dextrose 50 ml UD PRN IV Blood Sugar LESS THAN 60 12/03/24 22:15 Sodium Chloride (Saline Lock Ns) 10 ml Q8HR IV 12/04/24 06:00 12/04/24 06:04 Acetaminophen/ Hydrocodone Bitart ([place] 5/325MG Tab) 1 tab Q4HP PRN PO MODERATE PAIN (4-6 PAIN SCALE) 12/03/24 22:15 12/04/24 00:53 Ondansetron HCl (Zofran) 4 mg Q4HP PRN IV NAUSEA / VOMITING 12/03/24 22:15 12/04/24 02:27 Docusate Sodium (Colace Capsule) 100 mg BIDPRN PRN PO FOR CONSTIPATION 12/03/24 22:15 Acetaminophen (Tylenol Tablet) 650 mg Q6HP PRN PO PAIN SCALE 1-3 OR TEMP>100.4 12/03/24 22:15 Ondansetron HCl (Zofran) 4 mg Q4HPRN PRN IV NAUSEA / VOMITING 12/03/24 23:00 12/03/24 22:52 DC Nitroglycerin (Ntrostat Sublingual) 0.4 mg Q5MINP PRN SL FOR CHEST PAIN 12/03/24 23:45 Morphine Sulfate 2 mg Q30M PRN IV FOR CHEST PAIN 12/03/24 23:45 12/04/24 02:26 Vancomycin HCl 0 ml @ 0 mls/hr UD IV 12/04/24 03:00 UNV Prochlorperazine Edisylate (Compazine Inj) 10 mg Q4HPRN PRN IV NAUSEA OR VOMITING 12/04/24 03:00 12/04/24 04:05 Hydralazine HCl (Apresoline Injection) 10 mg Q6HP PRN IV SBP>150 12/04/24 03:00 12/04/24 04:02 Morphine Sulfate 2 mg Q4HPRN PRN IV SEVERE PAIN (7-10 PAIN SCALE) 12/04/24 04:45 Review of Systems 12 point review of systems as per HPI Vital Signs Vital Signs Date Time Temp Pulse Resp B/P (MAP) Pulse Ox O2 Delivery O2 Flow Rate FiO2 12/04/24 05:00 98.5 75 18 92/57 (69) 94 98.5 12/04/24 04:41 Room Air* 0 21 Physical Exam General: Alert and oriented, well-nourished and developed female lying in bed HEENT: NC/AT EOMI PERRLA-O/P clear Heart: Regular rate and rhythm Lungs: Clear to auscultation Abdomen: Soft, nondistended, mild diffuse tenderness to palpation no rebound Extremity: No clubbing cyanosis or edema Neuro: Cranial nerves grossly intact moves all four extremities Labs/Diagnostic Data Labs Test 12/04/24 06:33 12/04/24 00:17 12/03/24 23:11 12/03/24 20:21 Range/Units White Blood Count 15.7 H 4.4-10.8 10^3/uL Red Blood Count 5.17 4.0-5.20 10^6/uL Hemoglobin 14.4 12.2-16.2 g/dL Hematocrit 40.9 # 36.0-46.0 % Mean Corpuscular Volume 79.1 L 80.0-100.0 fL Mean Corpuscular Hemoglobin 27.8 L 28.0-32.0 pg Mean Corpuscular Hemoglobin Concent 35.1 32.0-36.0 g/dL Red Cell Distribution Width 15.1 H 11.8-14.3 % Platelet Count 259 140-450 10^3/uL Mean Platelet Volume 9.8 6.9-10.8 fL Neutrophils (%) (Auto) 80.3 H 37.0-80.0 % Lymphocytes (%) (Auto) 11.7 10.0-50.0 % Monocytes (%) (Auto) 7.7 0.0-12.0 % Eosinophils (%) (Auto) 0.1 0.0-7.0 % Basophils (%) (Auto) 0.2 0.0-2.0 % Neutrophils # (Auto) 12.6 H 1.6-8.6 10 ^3/uL Lymphocytes # (Auto) 1.8 0.4-5.4 10 ^3/uL Monocytes # (Auto) 1.2 0-1.3 10 ^3/uL Eosinophils # (Auto) 0 0-0.8 10 ^3/uL Basophils # (Auto) 0 0-0.2 10 ^3/uL Nucleated Red Blood Cells 0.0 % Sodium Level 145 136-145 mmol/L Potassium Level 2.7 L 3.5-5.1 mmol/L Chloride Level 103 98-107 mmol/L Carbon Dioxide Level 29 20-31 mmol/L Anion Gap 13 5-15 Blood Urea Nitrogen 20 9-23 mg/dL Creatinine 1.09 H 0.550-1.02 mg/dL Glomerular Filtration Rate Calc 66 >90 mL/min BUN/Creatinine Ratio 18.3 10.0-20.0 Serum Glucose 151 H 74-106 mg/dL Calcium Level 9.5 8.7-10.4 mg/dL Total Bilirubin 0.8 0.2-1.0 mg/dL Aspartate Amino Transferase (AST) 23 13-40 U/L Alanine Aminotransferase (ALT) 19 7-40 U/L Alkaline Phosphatase 67 46-116 U/L Total Protein 6.8 5.7-8.2 g/dL Albumin 4.8 3.2-4.8 g/dL Lactic Acid Level 1.2 0.4-2.0 mmol/L Troponin I High Sensitivity 419 *H </=34 ng/L Prothrombin Time 11.1 9.3-11.8 sec Prothrombin Time INR 1.05 0.9-1.15 Activated Partial Thromboplast Time 24.0 L 24.5-34.5 SEC B-Type Natriuretic Peptide 249.71 0-100 pg/mL Lipase 53 12-53 U/L Assessment 1. History of celiac disease 2. History GERD 3. Number nausea and vomiting 4. History of marijuana use 5. GI bleeding 6. Elevated troponin Suspect Eladia-Vance tear, stable hemoglobin Problems(with codes): (1) Abdominal pain (2) GI bleed (3) Elevated troponin (4) Acute abdominal pain (5) Generalized weakness (6) Elevated brain natriuretic peptide (BNP) level (7) Acute renal injury (8) Hypokalemia (9) Sepsis, unspecified organism (10) Diabetes mellitus with hyperglycemia Plan/Recommendation 1. Clear liquid diet advance as tolerated 2. Antiemetics as needed 3. Follow H and H 4. Consider discharge patient home when she tolerates a diet and has no further episodes 5. Outpatient follow up EGD with a gastro group where she is follow 6. Follow up troponin 7. Diabetes control Plan discussed with: Patient BERYL PRITCHARD MD Dec 04, 2024 08:05
[2024-12-04] MEDS: METOPROLOL TARTRATE 25 MG TAB PO SCH (08:17)
[2024-12-04] MEDS: PANTOPRAZOLE 40 MG/10 ML VIAL INJ IV SCH (08:18)
--- NOTE | 2024-12-04 09:42 | DVH ---
CHEST RADIOGRAPH Indication: positive trop Technique: Single frontal view of the chest was obtained COMPARISON: None FINDINGS: Lines and Tubes: None Lungs: Clear Pleura: No effusion. No pneumothorax. Cardiomediastinal contours: Unremarkable Bones: Unremarkable IMPRESSION: No acute disease.
[2024-12-04 10:14] LABS: Triglycerides 144 mg/dL (< 150)
[2024-12-04 10:16] LABS: Cholesterol 199 mg/dL (< 200); HDL Cholesterol 44 mg/dL (40-59)
--- NOTE | 2024-12-04 11:57 | DVHINCON2 ---
Date Seen: Dec 04, 2024 Referring Physician ADELA Stewart Reason for Consultation Elevated trop History of Present Illness 39-year-old female presents to the emergency department with complaint of generalized weakness and abdominal pain. Cardiology was consulted for evaluation of elevated troponins. Initial troponin was in the 300--400s and has down trended to the 200s. The patient reports history of GERD, type 2 diabetes mellitus, hypothyroidism, and celiac disease. She began experiencing abdominal pain yesterday, associated with nausea and diarrhea. She denies chest pain, shortness of breath, palpitations, diaphoresis, and has no personal or family history of coronary artery disease or myocardial infarction. She also denies tobacco use illicit drug use, or alcohol use. Twelve lead ECG shows normal sinus rhythm with minimal ST depressions in the anterolateral leads. Labs notable for elevated WBC and lactic acid. She is being admitted for GI bleed and sepsis. Past Medical History As stated in HPI Past Surgical History Cholecystectomy, Hysterectomy Family History Reviewed, non-contributory to the management of this case. Social History The patient lives at home, denies smoking, alcohol or illicit drugs abuse. Allergies: Coded Allergies: Penicillins (Verified Allergy, Unknown, 12/03/24) Sulfa Antibiotics (Verified Allergy, Unknown, 12/03/24) Current Medications Current Medications Medications (Trade) Dose Ordered Sig/Zach Route PRN Reason Start Time Stop Time Status Last Admin Pantoprazole Sodium (Protonix) 40 mg BID IV 12/04/24 10:00 12/04/24 08:18 Atorvastatin Calcium (Lipitor) 20 mg HS PO 12/04/24 22:00 Metoprolol Tartrate (Lopressor Tablet) 25 mg BID PO 12/04/24 10:00 12/04/24 08:17 Amlodipine Besylate (Norvasc Tablet) 5 mg DAILY PO 12/04/24 10:00 12/04/24 08:18 Metronidazole 100 ml @ 100 mls/hr Q8HR IV 12/04/24 06:00 12/04/24 06:04 Diagnostic Test (Pha) (Accu-Chek Comfort Curve T) 1 strip ACHS 12/04/24 07:00 12/04/24 11:19 Insulin Human Regular (InsuLIN R) HS SC 12/04/24 22:00 Insulin Human Regular (InsuLIN R) AC SC 12/04/24 07:00 12/04/24 06:39 Dextrose 50 ml UD PRN IV Blood Sugar LESS THAN 60 12/03/24 22:15 Sodium Chloride (Saline Lock Ns) 10 ml Q8HR IV 12/04/24 06:00 12/04/24 06:04 Acetaminophen/ Hydrocodone Bitart ([place] 5/325MG Tab) 1 tab Q4HP PRN PO MODERATE PAIN (4-6 PAIN SCALE) 12/03/24 22:15 12/04/24 00:53 Ondansetron HCl (Zofran) 4 mg Q4HP PRN IV NAUSEA / VOMITING 12/03/24 22:15 12/04/24 08:29 Docusate Sodium (Colace Capsule) 100 mg BIDPRN PRN PO FOR CONSTIPATION 12/03/24 22:15 Acetaminophen (Tylenol Tablet) 650 mg Q6HP PRN PO PAIN SCALE 1-3 OR TEMP>100.4 12/03/24 22:15 Ondansetron HCl (Zofran) 4 mg Q4HPRN PRN IV NAUSEA / VOMITING 12/03/24 23:00 12/03/24 22:52 DC Nitroglycerin (Ntrostat Sublingual) 0.4 mg Q5MINP PRN SL FOR CHEST PAIN 12/03/24 23:45 Morphine Sulfate 2 mg Q30M PRN IV FOR CHEST PAIN 12/03/24 23:45 12/04/24 02:26 Vancomycin HCl 0 ml @ 0 mls/hr UD IV 12/04/24 03:00 Prochlorperazine Edisylate (Compazine Inj) 10 mg Q4HPRN PRN IV NAUSEA OR VOMITING 12/04/24 03:00 12/04/24 04:05 Hydralazine HCl (Apresoline Injection) 10 mg Q6HP PRN IV SBP>150 12/04/24 03:00 12/04/24 04:02 Morphine Sulfate 2 mg Q4HPRN PRN IV SEVERE PAIN (7-10 PAIN SCALE) 12/04/24 04:45 12/04/24 08:19 Vancomycin HCl 100 ml @ 100 mls/hr Q12H IV 12/04/24 16:00 Review of Systems Constitutional: No symptom reported Ears, Nose, & Throat: No symptom reported Eyes: No symptom reported Neurological: No symptoms reported Pulmonary/Respiratory: No symptom reported Cardiovascular: No symptom reported Gastrointestinal: Abdominal pain, nausea, diarrhea Genitourinary: No symptom reported Musculoskeletal: No symptom reported Skin: No symptom reported Psychiatric: No symptom reported Endocrine: No symptom reported Hematologic/Lymphatic: No symptom reported Vital Signs Vital Signs Date Time Temp Pulse Resp B/P (MAP) Pulse Ox O2 Delivery O2 Flow Rate FiO2 12/04/24 09:00 98.6 68 20 185/113 (137) 94 98.6 12/04/24 04:41 Room Air* 0 21 Physical Exam INITIAL VITAL SIGNS: Reviewed by me GENERAL: Alert and interactive. No acute distress. HEAD: Head is normocephalic and atraumatic. EYES: EOMI, PERRL. No scleral icterus. No conjunctival injection. ENT: Moist mucous membranes. NECK: Supple, No masses, Full range of motion. RESPIRATORY: No tachypnea. Clear breath sounds bilaterally. No wheezing, rales, rhonchi. CV: Regular rate and rhythm. No murmurs, rubs, or gallops. GI/: Active bowel sounds, soft, tender to palpation. INTEGUMENTARY: Warm and dry. No obvious rashes. NEUROLOGIC: Alert and oriented. Face is symmetric. Speech is normal. Moves all extremities equally. Labs/Diagnostic Data Labs Test 12/04/24 09:53 12/04/24 06:33 12/04/24 00:17 12/03/24 20:21 Range/Units Troponin I High Sensitivity 287 *H </=34 ng/L White Blood Count 15.7 H 4.4-10.8 10^3/uL Red Blood Count 5.17 4.0-5.20 10^6/uL Hemoglobin 14.4 12.2-16.2 g/dL Hematocrit 40.9 # 36.0-46.0 % Mean Corpuscular Volume 79.1 L 80.0-100.0 fL Mean Corpuscular Hemoglobin 27.8 L 28.0-32.0 pg Mean Corpuscular Hemoglobin Concent 35.1 32.0-36.0 g/dL Red Cell Distribution Width 15.1 H 11.8-14.3 % Platelet Count 259 140-450 10^3/uL Mean Platelet Volume 9.8 6.9-10.8 fL Neutrophils (%) (Auto) 80.3 H 37.0-80.0 % Lymphocytes (%) (Auto) 11.7 10.0-50.0 % Monocytes (%) (Auto) 7.7 0.0-12.0 % Eosinophils (%) (Auto) 0.1 0.0-7.0 % Basophils (%) (Auto) 0.2 0.0-2.0 % Neutrophils # (Auto) 12.6 H 1.6-8.6 10 ^3/uL Lymphocytes # (Auto) 1.8 0.4-5.4 10 ^3/uL Monocytes # (Auto) 1.2 0-1.3 10 ^3/uL Eosinophils # (Auto) 0 0-0.8 10 ^3/uL Basophils # (Auto) 0 0-0.2 10 ^3/uL Nucleated Red Blood Cells 0.0 % Sodium Level 145 136-145 mmol/L Potassium Level 2.7 L 3.5-5.1 mmol/L Chloride Level 103 98-107 mmol/L Carbon Dioxide Level 29 20-31 mmol/L Anion Gap 13 5-15 Blood Urea Nitrogen 20 9-23 mg/dL Creatinine 1.09 H 0.550-1.02 mg/dL Glomerular Filtration Rate Calc 66 >90 mL/min BUN/Creatinine Ratio 18.3 10.0-20.0 Serum Glucose 151 H 74-106 mg/dL Calcium Level 9.5 8.7-10.4 mg/dL Total Bilirubin 0.8 0.2-1.0 mg/dL Aspartate Amino Transferase (AST) 23 13-40 U/L Alanine Aminotransferase (ALT) 19 7-40 U/L Alkaline Phosphatase 67 46-116 U/L Total Protein 6.8 5.7-8.2 g/dL Albumin 4.8 3.2-4.8 g/dL Triglycerides Level 144 < 150 mg/dL Cholesterol Level 199 < 200 mg/dL LDL Cholesterol 139 H < 100 mg/dL HDL Cholesterol 44 40-59 mg/dL Thyroid Stimulating Hormone (TSH) 0.30 L 0.55-4.78 uIU/mL Lactic Acid Level 1.2 0.4-2.0 mmol/L Prothrombin Time 11.1 9.3-11.8 sec Prothrombin Time INR 1.05 0.9-1.15 Activated Partial Thromboplast Time 24.0 L 24.5-34.5 SEC B-Type Natriuretic Peptide 249.71 0-100 pg/mL Lipase 53 12-53 U/L PROCEDURE(s): CXRP - CHEST PORTABLE REASON: positive trop ORDER NUMBER(s): [id number], ACCESSION NUMBER(s): [id number] CHEST RADIOGRAPH Indication: positive trop Technique: Single frontal view of the chest was obtained COMPARISON: None FINDINGS: Lines and Tubes: None Lungs: Clear Pleura: No effusion. No pneumothorax. Cardiomediastinal contours: Unremarkable Bones: Unremarkable IMPRESSION: No acute disease. Assessment Demand ischemia, NSTEMI likely type 2 Acute GI bleeding Sepsis GERD DM type 2 Hypothyroidism Plan/Recommendation (Dr. Kline ): From a Cardiology standpoint, the patient's elevated troponins are most consistent with a type 2 myocardial infarction likely secondary to sepsis in GI bleed, rather than acute coronary syndrome. The patient denies chest pain, dyspnea or other ischemic symptoms, and ECG shows only minimal nonspecific ST changes without dynamic evolution. Given the clinical context and absence of high-risk features, we do not recommend initiating anticoagulation and antiplatelet therapy at this time due to elevated bleeding risk. We will continue to trend serial troponin to confirm a downtrend eating pattern. A transthoracic echocardiogram has been ordered to assess cardiac function and rule out and denying wall motion abnormalities or structural heart disease. At present, no need for further ischemic workup unless the patient develops new symptoms or troponins elevated. Cardiology will continue to follow for further recommendation as clinically indicated. This medical document was created using an electronic medical record system with voice recognition software and computerized dictation system. Although this document has been carefully reviewed, there might still be some phonetic and typographical errors. Occasional wrong-word or ``sound-alike substitutions may have occurred due to the inherent limitations of voice recognition software. These areas are purely typographical due to imperfections of the software programs and do not reflect any compromise in the patient's medical care. Please read the chart carefully and recognize, using context, where these substitutions have occurred. Plan discussed with: Patient Plan discussed with: Patient NYHA Physical activity limitations: NA Date of Service: Dec 04, 2024 Billing Provider: AVE KLINE MD Cardiology Common Codes: CONSULT ONLY Cardiology Consultation Codes: [id number] CONSULT <45MIN [facility]IE[facility] Dec 04, 2024 11:57
--- NOTE | 2024-12-04 15:15 | DVHSR ---
APPROVED REPORT EXAM: Two-dimensional and M-mode echocardiogram with Doppler and color Doppler. Blood Pressure: 92/57 mmHg INDICATION Elevated BNP RISK FACTORS Height: 5'0", Weight: 111 DIMENSIONS LVDd4.2 (3.8-5.7cm)LA (2D)3.6 (1.9-4.0cm)Aortic Root3.2 (2.0-3.7cm) LVDs2.7 (2.5-4.0cm)LA (MM) (1.9-4.0cm)Aortic Cusp Exc1.8 (1.5-2.0cm) EF (%) 65.0 (55-70%)Rt. Atrium2.9 (1.9-4.0cm)Asc. Aorta cm IVSd1.2 (0.7-1.1cm)RV (D) (1.8-2.4cm) PWd0.9 (0.7-1.1cm) Mitral Valve MitralMitral Stenosis E wave0.56m/sMV Mean GR.mmHg A wave0.71m/sMV Peak GR.mmHg E/A ratio0.82D MVAcm2 DECEL [id number] 1/2 Timems Aortic Valve Aortic ValveAortic Stenosis V10.94m/Michelle Mean GR.4mmHg V21.66m/Michelle Peak GR.11mmHg LVOT Diameter2.0 (1.8-2.4cm)Doppler AVA1.78cm2 Pulmonic Valve V21.11m/s Conclusion LV EF IS 65% AND IS NORMAL NORMAL VALVES NORMAL RV FUNCTION AND SIZE NO EFFUSION
[2024-12-04] MEDS: VANCOMYCIN 750MG KIT 100 ML IV SCH (17:39)
[2024-12-04] MEDS: POTASSIUM CHL 20 Meq TABLET PO ONE (18:00)
--- NOTE | 2024-12-04 18:19 | DVHPN2 ---
Subjective 39-year-old female with a known history of diabetes mellitus type 2, hypothyroidism, GERD, history of celiac disease, chronic marijuana use presented to the hospital with the abdominal pain nausea and vomiting and some blood in vomiting found to have elevated troponin as well. Patient is still complaining of nausea and vomiting and abdominal pain. Reviewed: Care Plan Changes from previous H/P or p: No Changes Eyes: No Pain, No Vision change, No Conjunctivae inflammation, No Eyelid inflammation, No Other, No Redness ENT: No Ear pain, No Ear discharge, No Nose pain, No Nose discharge, No Nose congestion, No Mouth pain, No Mouth swelling, No Throat pain, No Throat swelling, No Other Cardiovascular: No Chest Pain, No Palpitations, No Orthopnea, No Paroxysmal Noc. Dyspnea, No Edema, No Lt Headedness, No Other Respiratory: No Cough, No Dry, No Shortness of breath, No SOB with excertion, No Wheezing, No Hemoptysis, No Pleuritic Pain, No Sputum, No Other Gastrointestinal: Nausea, Vomiting, Abdominal Pain, Other Genitourinary: Dysuria Musculoskeletal: No other, No neck pain, No shoulder pain, No arm pain, No back pain, No hand pain, No leg pain, No foot pain Skin: No Rash, No Lesions, No Jaundice, No Bruising, No Other Objective Vitals Vital Signs Date Time Temp Pulse Resp B/P (MAP) Pulse Ox O2 Delivery O2 Flow Rate FiO2 12/04/24 17:28 95 20 142/95 12/04/24 17:00 98.6 98 98.6 12/04/24 08:00 Room Air* 0 21 Intake/Output Intake and Output 12/04/24 07:00 Intake Total 0 ml Balance 0 ml Intake Oral 0 ml Exam HEENT pupils are reactive Neck is supple CV is S1-S2 regular rate and rhythm Respiratory are clear GI positive bowel sounds soft nondistended mildly tender in epigastric region Extremities no edema [employer] no motor deficit Medications Current Medications Medications Dose Ordered Sig/Zach Route Start Time Stop Time Status Last Admin Dose Admin Pantoprazole Sodium 40 mg BID IV 12/04/24 10:00 12/04/24 08:18 40 MG Atorvastatin Calcium 20 mg HS PO 12/04/24 22:00 Metoprolol Tartrate 25 mg BID PO 12/04/24 10:00 12/04/24 08:17 25 MG Amlodipine Besylate 5 mg DAILY PO 12/04/24 10:00 12/04/24 08:18 5 MG Metronidazole 100 ml @ 100 mls/hr Q8HR IV 12/04/24 06:00 12/04/24 14:05 100 MLS/HR Diagnostic Test (Pha) 1 strip ACHS 12/04/24 07:00 12/04/24 17:23 1 STRIP Insulin Human Regular HS SC 12/04/24 22:00 Insulin Human Regular AC SC 12/04/24 07:00 12/04/24 17:38 9 UNITS Dextrose 50 ml UD PRN IV 12/03/24 22:15 Sodium Chloride 10 ml Q8HR IV 12/04/24 06:00 12/04/24 14:08 10 ML Acetaminophen/ Hydrocodone Bitart 1 tab Q4HP PRN PO 12/03/24 22:15 12/04/24 11:38 1 TAB Ondansetron HCl 4 mg Q4HP PRN IV 12/03/24 22:15 12/04/24 17:23 4 MG Docusate Sodium 100 mg BIDPRN PRN PO 12/03/24 22:15 Acetaminophen 650 mg Q6HP PRN PO 12/03/24 22:15 Nitroglycerin 0.4 mg Q5MINP PRN SL 12/03/24 23:45 Morphine Sulfate 2 mg Q30M PRN IV 12/03/24 23:45 12/04/24 02:26 2 MG Vancomycin HCl 0 ml @ 0 mls/hr UD IV 12/04/24 03:00 Prochlorperazine Edisylate 10 mg Q4HPRN PRN IV 12/04/24 03:00 12/04/24 04:05 10 MG Hydralazine HCl 10 mg Q6HP PRN IV 12/04/24 03:00 12/04/24 12:51 10 MG Morphine Sulfate 2 mg Q4HPRN PRN IV 12/04/24 04:45 12/04/24 16:58 2 MG Vancomycin HCl 100 ml @ 100 mls/hr Q12H IV 12/04/24 16:00 12/04/24 17:39 100 MLS/HR Potassium Chloride 100 ml @ 50 mls/hr Q2H IV 12/04/24 18:00 12/04/24 23:59 Laboratory Results Laboratory Tests 12/04/24 06:33 Chemistry Test 12/03/24 20:21 12/04/24 06:33 Albumin 5.7 g/dL (3.2-4.8) H 4.8 g/dL (3.2-4.8) Calcium Level 11.0 mg/dL (8.7-10.4) H 9.5 mg/dL (8.7-10.4) Total Protein 8.3 g/dL (5.7-8.2) H 6.8 g/dL (5.7-8.2) Coagulation Test 12/03/24 20:21 Prothrombin Time 11.1 sec (9.3-11.8) Prothrombin Time INR 1.05 (0.9-1.15) Activated Partial Thromboplast Time 24.0 SEC (24.5-34.5) L Lipid panel Test 12/03/24 20:21 12/04/24 06:33 Lipase 53 U/L (12-53) Cholesterol Level 199 mg/dL (< 200) HDL Cholesterol 44 mg/dL (40-59) Triglycerides Level 144 mg/dL (< 150) Cardiac Markers Test 12/03/24 20:21 B-Type Natriuretic Peptide 249.71 pg/mL (0-100) LFT Test 12/03/24 20:21 12/04/24 06:33 Alanine Aminotransferase (ALT) 22 U/L (7-40) 19 U/L (7-40) Alkaline Phosphatase 86 U/L (46-116) 67 U/L (46-116) Aspartate Amino Transferase (AST) 23 U/L (13-40) 23 U/L (13-40) Total Bilirubin 1.0 mg/dL (0.2-1.0) 0.8 mg/dL (0.2-1.0) HgA1c, TSH Test 12/04/24 06:33 Hemoglobin A1c 6.6 % A1C (<5.7) H Thyroid Stimulating Hormone (TSH) 0.30 uIU/mL (0.55-4.78) L Assessment/Plan Assessment/Plan 79-year-old female with a known history of diabetes mellitus type 2, hypothyroidism, GERD, chronic marijuana use who initially presented to the hospital with the abdominal pain nausea and vomiting found to have 1. Abdominal pain nausea and vomiting suspect cyclic vomiting syndrome secondary to chronic marijuana use 2. Rule out upper GI bleed 3. NSTEMI suspect type 2 secondary to demand ischemia does not seem to be acute coronary syndrome 4. Diabetes mellitus type 2 5. Hypothyroidism 6. GERD 7. History of celiac disease -pain meds, antiemetics, Protonix, follow up with GI and Cardiology recommendations. Plan discussed with: Patient Date of Service: Dec 04, 2024 Billing Provider: GIANCARLO VANCE MD Common Visit Codes: [id number] INP/OBS CARE(MOD) GIANCARLO VANCE MD Dec 04, 2024 18:19
[2024-12-04] MEDS: POTASSIUM CHL 20MEQ/100ML 100 ML IV SCH (18:59)
[2024-12-04] MEDS: ATORVASTATIN 20 MG TAB PO SCH (21:20)
--- NOTE | 2024-12-04 23:52 | DVHINCON2 ---
Date Seen: Dec 04, 2024 Referring Physician ADELA Stewart Reason for Consultation Elevated troponin History of Present Illness This is a 39-year-old female with a PMH of GERD, type 2 diabetes mellitus, hypothyroidism, and celiac disease who presents to the emergency department with a complaint of generalized weakness and abdominal pain. Cardiology was consulted for evaluation of elevated troponins. Initial troponin was in the 300--400s and has down trended to the 200s. Patient began experiencing abdominal pain yesterday, associated with nausea and diarrhea. Patient denies chest pain, shortness of breath, palpitations, diaphoresis, and has no personal or family history of coronary artery disease or myocardial infarction. Patient also denies tobacco use illicit drug use, or alcohol use. Twelve lead ECG shows normal sinus rhythm with minimal ST depressions in the anterolateral leads. Labs notable for elevated WBC and lactic acid. Patient is being admitted for GI bleed and sepsis. CT ABD PEL showed no acute abdominopelvic abnormality, evidence of urinary stone or obstruction. Past Medical History As stated in HPI Past Surgical History Cholecystectomy, Hysterectomy Allergies: Coded Allergies: Penicillins (Verified Allergy, Unknown, 12/03/24) Sulfa Antibiotics (Verified Allergy, Unknown, 12/03/24) Current Medications Current Medications Medications (Trade) Dose Ordered Sig/Zach Route PRN Reason Start Time Stop Time Status Last Admin Pantoprazole Sodium (Protonix) 40 mg BID IV 12/04/24 10:00 12/04/24 08:18 Atorvastatin Calcium (Lipitor) 20 mg HS PO 12/04/24 22:00 Metoprolol Tartrate (Lopressor Tablet) 25 mg BID PO 12/04/24 10:00 12/04/24 08:17 Amlodipine Besylate (Norvasc Tablet) 5 mg DAILY PO 12/04/24 10:00 12/04/24 08:18 Metronidazole 100 ml @ 100 mls/hr Q8HR IV 12/04/24 06:00 12/04/24 06:04 Diagnostic Test (Pha) (Accu-Chek Comfort Curve T) 1 strip ACHS 12/04/24 07:00 12/04/24 11:19 Insulin Human Regular (InsuLIN R) HS SC 12/04/24 22:00 Insulin Human Regular (InsuLIN R) AC SC 12/04/24 07:00 12/04/24 11:33 Dextrose 50 ml UD PRN IV Blood Sugar LESS THAN 60 12/03/24 22:15 Sodium Chloride (Saline Lock Ns) 10 ml Q8HR IV 12/04/24 06:00 12/04/24 06:04 Acetaminophen/ Hydrocodone Bitart ([place] 5/325MG Tab) 1 tab Q4HP PRN PO MODERATE PAIN (4-6 PAIN SCALE) 12/03/24 22:15 12/04/24 11:38 Ondansetron HCl (Zofran) 4 mg Q4HP PRN IV NAUSEA / VOMITING 12/03/24 22:15 12/04/24 08:29 Docusate Sodium (Colace Capsule) 100 mg BIDPRN PRN PO FOR CONSTIPATION 12/03/24 22:15 Acetaminophen (Tylenol Tablet) 650 mg Q6HP PRN PO PAIN SCALE 1-3 OR TEMP>100.4 12/03/24 22:15 Ondansetron HCl (Zofran) 4 mg Q4HPRN PRN IV NAUSEA / VOMITING 12/03/24 23:00 12/03/24 22:52 DC Nitroglycerin (Ntrostat Sublingual) 0.4 mg Q5MINP PRN SL FOR CHEST PAIN 12/03/24 23:45 Morphine Sulfate 2 mg Q30M PRN IV FOR CHEST PAIN 12/03/24 23:45 12/04/24 02:26 Vancomycin HCl 0 ml @ 0 mls/hr UD IV 12/04/24 03:00 Prochlorperazine Edisylate (Compazine Inj) 10 mg Q4HPRN PRN IV NAUSEA OR VOMITING 12/04/24 03:00 12/04/24 04:05 Hydralazine HCl (Apresoline Injection) 10 mg Q6HP PRN IV SBP>150 12/04/24 03:00 12/04/24 04:02 Morphine Sulfate 2 mg Q4HPRN PRN IV SEVERE PAIN (7-10 PAIN SCALE) 12/04/24 04:45 12/04/24 08:19 Vancomycin HCl 100 ml @ 100 mls/hr Q12H IV 12/04/24 16:00 Review of Systems Constitutional: No symptom reported Ears, Nose, & Throat: No symptom reported Eyes: No symptom reported Neurological: No symptoms reported Pulmonary/Respiratory: No symptom reported Cardiovascular: No symptom reported Gastrointestinal: Abdominal pain, nausea, diarrhea Genitourinary: No symptom reported Musculoskeletal: No symptom reported Skin: No symptom reported Psychiatric: No symptom reported Endocrine: No symptom reported Hematologic/Lymphatic: No symptom reported Vital Signs Vital Signs Date Time Temp Pulse Resp B/P (MAP) Pulse Ox O2 Delivery O2 Flow Rate FiO2 12/04/24 09:17 70 175/105 12/04/24 09:00 98.6 20 94 98.6 12/04/24 04:41 Room Air* 0 21 Physical Exam GENERAL: Alert and oriented x 3. No acute distress. EYES: PERRL, EOMI. Anicteric. HENT: Moist mucous membranes. LUNGS: Clear to auscultation bilaterally. CARDIOVASCULAR: Regular rate and rhythm. ABDOMEN: Soft, nontender and nondistended. EXTREMITIES: No edema. NEUROLOGIC: No focal neurological deficits. SKIN: Warm, dry. Labs/Diagnostic Data Labs Test 12/04/24 11:09 12/04/24 09:53 12/04/24 06:33 12/04/24 00:17 Range/Units POC Glucose 158 H 70-106 mg/dl Troponin I High Sensitivity 287 *H </=34 ng/L White Blood Count 15.7 H 4.4-10.8 10^3/uL Red Blood Count 5.17 4.0-5.20 10^6/uL Hemoglobin 14.4 12.2-16.2 g/dL Hematocrit 40.9 # 36.0-46.0 % Mean Corpuscular Volume 79.1 L 80.0-100.0 fL Mean Corpuscular Hemoglobin 27.8 L 28.0-32.0 pg Mean Corpuscular Hemoglobin Concent 35.1 32.0-36.0 g/dL Red Cell Distribution Width 15.1 H 11.8-14.3 % Platelet Count 259 140-450 10^3/uL Mean Platelet Volume 9.8 6.9-10.8 fL Neutrophils (%) (Auto) 80.3 H 37.0-80.0 % Lymphocytes (%) (Auto) 11.7 10.0-50.0 % Monocytes (%) (Auto) 7.7 0.0-12.0 % Eosinophils (%) (Auto) 0.1 0.0-7.0 % Basophils (%) (Auto) 0.2 0.0-2.0 % Neutrophils # (Auto) 12.6 H 1.6-8.6 10 ^3/uL Lymphocytes # (Auto) 1.8 0.4-5.4 10 ^3/uL Monocytes # (Auto) 1.2 0-1.3 10 ^3/uL Eosinophils # (Auto) 0 0-0.8 10 ^3/uL Basophils # (Auto) 0 0-0.2 10 ^3/uL Nucleated Red Blood Cells 0.0 % Sodium Level 145 136-145 mmol/L Potassium Level 2.7 L 3.5-5.1 mmol/L Chloride Level 103 98-107 mmol/L Carbon Dioxide Level 29 20-31 mmol/L Anion Gap 13 5-15 Blood Urea Nitrogen 20 9-23 mg/dL Creatinine 1.09 H 0.550-1.02 mg/dL Glomerular Filtration Rate Calc 66 >90 mL/min BUN/Creatinine Ratio 18.3 10.0-20.0 Serum Glucose 151 H 74-106 mg/dL Hemoglobin A1c 6.6 H <5.7 % A1C Calcium Level 9.5 8.7-10.4 mg/dL Total Bilirubin 0.8 0.2-1.0 mg/dL Aspartate Amino Transferase (AST) 23 13-40 U/L Alanine Aminotransferase (ALT) 19 7-40 U/L Alkaline Phosphatase 67 46-116 U/L Total Protein 6.8 5.7-8.2 g/dL Albumin 4.8 3.2-4.8 g/dL Triglycerides Level 144 < 150 mg/dL Cholesterol Level 199 < 200 mg/dL LDL Cholesterol 139 H < 100 mg/dL HDL Cholesterol 44 40-59 mg/dL Thyroid Stimulating Hormone (TSH) 0.30 L 0.55-4.78 uIU/mL Lactic Acid Level 1.2 0.4-2.0 mmol/L Test 12/03/24 20:21 Range/Units Prothrombin Time 11.1 9.3-11.8 sec Prothrombin Time INR 1.05 0.9-1.15 Activated Partial Thromboplast Time 24.0 L 24.5-34.5 SEC B-Type Natriuretic Peptide 249.71 0-100 pg/mL Lipase 53 12-53 U/L Assessment Demand ischemia, NSTEMI likely type 2. Acute GI bleeding. Sepsis. GERD. DM type 2. Hypothyroidism. Plan/Recommendation I agree with your ongoing assessment and care of plan. Patient has been seen by Ilene Dumont NP on my behalf, her and I discussed the plan with the patient. From a Cardiology standpoint, the patient's elevated troponins are most consistent with a type 2 myocardial infarction likely secondary to sepsis in GI bleed, rather than acute coronary syndrome. The patient denies chest pain, dyspnea or other ischemic symptoms, and ECG shows only minimal nonspecific ST changes without dynamic evolution. Given the clinical context and absence of high-risk features, we do not recommend initiating anticoagulation and antiplatelet therapy at this time due to elevated bleeding risk. We will continue to trend serial troponin to confirm a downtrend eating pattern. A transthoracic echocardiogram has been ordered to assess cardiac function and rule out and denying wall motion abnormalities or structural heart disease. At present, no need for further ischemic workup unless the patient develops new symptoms or troponins elevated. Cardiology will continue to follow for further recommendation as clinically indicated. Additional plan as per the hospital course. Plan discussed with: Patient NYHA Physical activity limitations: NA Date of Service: Dec 04, 2024 Billing Provider: AVE KLINE MD Cardiology Common Codes: [id number] INP/OBS CARE (High) Cardiology Consultation Codes: [id number] CONSULT <45MIN AVE KLINE MD Dec 04, 2024 12:30
[2024-12-05] VITALS (8 sets, daily range): BP systolic 111–171; BP diastolic 69–119; PULSE 71–86; RESP 15–20; TEMP 96.1–99.2; O2SAT 95–97
[2024-12-05] MEDS ORDERED: VANCOMYCIN HCL 1000 MG VL ONE (05:36)
[2024-12-05 06:21] LABS: Nucleated Red Blood Cells % 0.0 %
[2024-12-05 06:24] LABS: Hematocrit 43.7 % (36.0-46.0); Hemoglobin 14.9 g/dL (12.2-16.2); Mean Corpuscular Hemoglobin 27.5 pg (28.0-32.0); Mean Corpuscular Volume 80.6 fL (80.0-100.0)
[2024-12-05 07:33] LABS: Urine Protein, UAD 1+ (Negative)
--- NOTE | 2024-12-05 10:14 | DVHPN2 ---
Progress Note - Dictate Date Seen: Dec 05, 2024 Medical Necessity Reason Pt with a Central, PICC or Fol: No Subjective Patient still has nausea, abdominal pain, appreciate Cardiology consultation. vital signs Vital Sign Date Time Temp Pulse Resp B/P (MAP) Pulse Ox O2 Delivery O2 Flow Rate FiO2 12/05/24 10:04 72 20 126/86 12/05/24 05:00 96.1 97 96.1 12/04/24 20:00 Room Air* 0 21 Total Intake and Output 12/04/24 12/04/24 12/05/24 15:00 23:00 07:00 Intake Total 100 ml 500 ml 1360 ml Balance 100 ml 500 ml 1360 ml medications Current Medications Medications Dose Ordered Sig/Zach Route Start Time Stop Time Status Last Admin Dose Admin Pantoprazole Sodium 40 mg BID IV 12/04/24 10:00 12/05/24 10:02 40 MG Atorvastatin Calcium 20 mg HS PO 12/04/24 22:00 12/04/24 21:20 20 MG Metoprolol Tartrate 25 mg BID PO 12/04/24 10:00 12/04/24 21:20 25 MG Amlodipine Besylate 5 mg DAILY PO 12/04/24 10:00 12/04/24 08:18 5 MG Metronidazole 100 ml @ 100 mls/hr Q8HR IV 12/04/24 06:00 12/05/24 05:32 100 MLS/HR Diagnostic Test (Pha) 1 strip ACHS 12/04/24 07:00 12/05/24 06:49 1 STRIP Insulin Human Regular HS SC 12/04/24 22:00 12/04/24 21:39 3 UNITS Insulin Human Regular AC SC 12/04/24 07:00 12/05/24 06:48 6 UNITS Dextrose 50 ml UD PRN IV 12/03/24 22:15 Sodium Chloride 10 ml Q8HR IV 12/04/24 06:00 12/05/24 06:25 10 ML Acetaminophen/ Hydrocodone Bitart 1 tab Q4HP PRN PO 12/03/24 22:15 12/05/24 03:32 1 TAB Ondansetron HCl 4 mg Q4HP PRN IV 12/03/24 22:15 12/05/24 10:02 4 MG Docusate Sodium 100 mg BIDPRN PRN PO 12/03/24 22:15 Acetaminophen 650 mg Q6HP PRN PO 12/03/24 22:15 Nitroglycerin 0.4 mg Q5MINP PRN SL 12/03/24 23:45 Morphine Sulfate 2 mg Q30M PRN IV 12/03/24 23:45 12/04/24 02:26 2 MG Vancomycin HCl 0 ml @ 0 mls/hr UD IV 12/04/24 03:00 Prochlorperazine Edisylate 10 mg Q4HPRN PRN IV 12/04/24 03:00 12/04/24 04:05 10 MG Hydralazine HCl 10 mg Q6HP PRN IV 12/04/24 03:00 12/05/24 01:31 10 MG Morphine Sulfate 2 mg Q4HPRN PRN IV 12/04/24 04:45 12/05/24 10:04 2 MG Vancomycin HCl 100 ml @ 100 mls/hr Q12H IV 12/04/24 16:00 12/05/24 06:41 100 MLS/HR laboratory and microbiology Laboratory Tests 12/05/24 05:57 12/04/24 06:33 Test 12/04/24 06:33 Range/Units Serum Glucose 151 H 74-106 mg/dL Assessment/Plan 1. History of celiac disease 2. History GERD 3. Number nausea and vomiting 4. History of marijuana use 5. GI bleeding 6. Elevated troponin Suspect Eladia-Vance tear, stable hemoglobin Recommendations: 1. Continue current medications including antibiotics and Protonix 2. Follow H&H 3. Hold off on endoscopy at this time 4. Follow up with Cardiology recommendations 5. Diet as tolerated 6. Antiemetics Problems(with codes): (1) Abdominal pain (2) GI bleed (3) Elevated troponin (4) Acute abdominal pain (5) Elevated brain natriuretic peptide (BNP) level (6) Acute renal injury (7) Sepsis, unspecified organism (8) Diabetes mellitus with hyperglycemia (9) Hypokalemia Plan discussed with: Patient BERYL PRITCHARD MD Dec 05, 2024 10:14
--- NOTE | 2024-12-05 16:41 | DVHPN2 ---
Subjective 39-year-old female with a known history of diabetes mellitus type 2, hypothyroidism, GERD, history of celiac disease, chronic marijuana use presented to the hospital with the abdominal pain nausea and vomiting and some blood in vomiting found to have elevated troponin as well. Patient is still complaining of nausea and vomiting and abdominal pain. Reviewed: Care Plan Changes from previous H/P or p: No Changes Eyes: No Pain, No Vision change, No Conjunctivae inflammation, No Eyelid inflammation, No Other, No Redness ENT: No Ear pain, No Ear discharge, No Nose pain, No Nose discharge, No Nose congestion, No Mouth pain, No Mouth swelling, No Throat pain, No Throat swelling, No Other Cardiovascular: No Chest Pain, No Palpitations, No Orthopnea, No Paroxysmal Noc. Dyspnea, No Edema, No Lt Headedness, No Other Respiratory: No Cough, No Dry, No Shortness of breath, No SOB with excertion, No Wheezing, No Hemoptysis, No Pleuritic Pain, No Sputum, No Other Gastrointestinal: Nausea, Vomiting, Abdominal Pain, Other Genitourinary: Dysuria Musculoskeletal: No other, No neck pain, No shoulder pain, No arm pain, No back pain, No hand pain, No leg pain, No foot pain Skin: No Rash, No Lesions, No Jaundice, No Bruising, No Other Objective Vitals Vital Signs Date Time Temp Pulse Resp B/P (MAP) Pulse Ox O2 Delivery O2 Flow Rate FiO2 12/05/24 14:09 79 20 169/114 12/05/24 13:00 97.4 96 97.4 12/05/24 08:00 Room Air* 0 21 Intake/Output Intake and Output 12/05/24 07:00 Intake Total 1960 ml Balance 1960 ml Intake Oral 1260 ml IV Total 700 ml # Voids 2 Exam HEENT pupils are reactive Neck is supple CV is S1-S2 regular rate and rhythm Respiratory are clear GI positive bowel sounds soft nondistended mildly tender in epigastric region Extremities no edema 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 Medications Current Medications Medications Dose Ordered Sig/Zach Route Start Time Stop Time Status Last Admin Dose Admin Pantoprazole Sodium 40 mg BID IV 12/04/24 10:00 12/05/24 10:02 40 MG Atorvastatin Calcium 20 mg HS PO 12/04/24 22:00 12/04/24 21:20 20 MG Metoprolol Tartrate 25 mg BID PO 12/04/24 10:00 12/04/24 21:20 25 MG Amlodipine Besylate 5 mg DAILY PO 12/04/24 10:00 12/04/24 08:18 5 MG Metronidazole 100 ml @ 100 mls/hr Q8HR IV 12/04/24 06:00 12/05/24 14:09 100 MLS/HR Diagnostic Test (Pha) 1 strip ACHS 12/04/24 07:00 12/05/24 11:06 1 STRIP Insulin Human Regular HS SC 12/04/24 22:00 12/04/24 21:39 3 UNITS Insulin Human Regular AC SC 12/04/24 07:00 12/05/24 11:36 3 UNITS Dextrose 50 ml UD PRN IV 12/03/24 22:15 Sodium Chloride 10 ml Q8HR IV 12/04/24 06:00 12/05/24 15:29 10 ML Acetaminophen/ Hydrocodone Bitart 1 tab Q4HP PRN PO 12/03/24 22:15 12/05/24 12:38 1 TAB Ondansetron HCl 4 mg Q4HP PRN IV 12/03/24 22:15 12/05/24 14:08 4 MG Docusate Sodium 100 mg BIDPRN PRN PO 12/03/24 22:15 Acetaminophen 650 mg Q6HP PRN PO 12/03/24 22:15 Nitroglycerin 0.4 mg Q5MINP PRN SL 12/03/24 23:45 Morphine Sulfate 2 mg Q30M PRN IV 12/03/24 23:45 12/04/24 02:26 2 MG Vancomycin HCl 0 ml @ 0 mls/hr UD IV 12/04/24 03:00 Prochlorperazine Edisylate 10 mg Q4HPRN PRN IV 12/04/24 03:00 12/04/24 04:05 10 MG Hydralazine HCl 10 mg Q6HP PRN IV 12/04/24 03:00 12/05/24 14:08 10 MG Morphine Sulfate 2 mg Q4HPRN PRN IV 12/04/24 04:45 12/05/24 14:09 2 MG Vancomycin HCl 100 ml @ 100 mls/hr Q12H IV 12/04/24 16:00 12/05/24 06:41 100 MLS/HR Laboratory Results Laboratory Tests 12/04/24 06:33 12/05/24 05:57 Urinalysis Test 12/05/24 07:18 Urine Color Light-orange (Yellow) Urine Clarity Turbid (Clear) H Urine pH 7.0 (5.0-9.0) Urine Specific [place] 1.018 (1.001-1.035) Urine Protein 1+ (Negative) H Urine Ketones Negative (Negative) Urine Blood Negative /uL (Negative) Urine Nitrite Negative (Negative) Urine Bilirubin Negative (Negative) Urine Urobilinogen Normal mg/dL (Negative) Urine Leukocyte Esterase Negative /uL (Negative) Urine RBC 2 /hpf (0 - 4) Urine Microscopic WBC 9 /HPF (0-5) H Urine Squamous Epithelial Cells Mod /hpf (<5) Urine Bacteria None seen /hpf (None Seen) Urine Mucus Few (None Seen) Urine Glucose 4+ mg/dL (Normal) H Microbiology Microbiology Date/Time Source Procedure Growth Status 12/03/24 22:05 Blood Blood Culture - Preliminary NO GROWTH AFTER 24 HOURS OF INCUBATION. Resulted Assessment/Plan Assessment/Plan 79-year-old female with a known history of diabetes mellitus type 2, hypothyroidism, GERD, chronic marijuana use who initially presented to the hospital with the abdominal pain nausea and vomiting found to have 1. Abdominal pain nausea and vomiting suspect cyclic vomiting syndrome secondary to chronic marijuana use 2. Rule out upper GI bleed 3. NSTEMI suspect type 2 secondary to demand ischemia does not seem to be acute coronary syndrome 4. Diabetes mellitus type 2 5. Hypothyroidism 6. GERD 7. History of celiac disease -pain meds, antiemetics, Protonix, follow up with GI and Cardiology recommendations. Plan discussed with: Patient Date of Service: Dec 05, 2024 Billing Provider: GIANCARLO VANCE MD Common Visit Codes: [id number] INP/OBS CARE(MOD) GIANCARLO VANCE MD Dec 05, 2024 16:41
--- NOTE | 2024-12-05 23:52 | DVHPN2 ---
Progress Note - Dictate Date Seen: Dec 05, 2024 Medical Necessity Reason Pt with a Central, PICC or Fol: No Subjective Patient was seen and evaluated in follow up. Patient is complaining of severe abdominal pain with hematemesis. Patient endorses having trouble keeping anything down. WBC 14.3, TROP 74, GLUC 291. Telemetry reviewed. vital signs Vital Sign Date Time Temp Pulse Resp B/P (MAP) Pulse Ox O2 Delivery O2 Flow Rate FiO2 12/05/24 21:00 99.2 74 16 132/87 (102) 96 99.2 12/05/24 20:00 Room Air* 0 21 Total Intake and Output 12/04/24 12/04/24 12/05/24 15:00 23:00 07:00 Intake Total 100 ml 500 ml 1360 ml Balance 100 ml 500 ml 1360 ml medications Current Medications Medications Dose Ordered Sig/Zach Route Start Time Stop Time Status Last Admin Dose Admin Pantoprazole Sodium 40 mg BID IV 12/04/24 10:00 12/05/24 10:02 40 MG Atorvastatin Calcium 20 mg HS PO 12/04/24 22:00 12/04/24 21:20 20 MG Metoprolol Tartrate 25 mg BID PO 12/04/24 10:00 12/04/24 21:20 25 MG Amlodipine Besylate 5 mg DAILY PO 12/04/24 10:00 12/04/24 08:18 5 MG Metronidazole 100 ml @ 100 mls/hr Q8HR IV 12/04/24 06:00 12/05/24 14:09 100 MLS/HR Diagnostic Test (Pha) 1 strip ACHS 12/04/24 07:00 12/05/24 16:39 1 STRIP Insulin Human Regular HS SC 12/04/24 22:00 12/04/24 21:39 3 UNITS Insulin Human Regular AC SC 12/04/24 07:00 12/05/24 16:47 9 UNITS Dextrose 50 ml UD PRN IV 12/03/24 22:15 Sodium Chloride 10 ml Q8HR IV 12/04/24 06:00 12/05/24 15:29 10 ML Acetaminophen/ Hydrocodone Bitart 1 tab Q4HP PRN PO 12/03/24 22:15 12/05/24 16:50 1 TAB Ondansetron HCl 4 mg Q4HP PRN IV 12/03/24 22:15 12/05/24 20:11 4 MG Docusate Sodium 100 mg BIDPRN PRN PO 12/03/24 22:15 Acetaminophen 650 mg Q6HP PRN PO 12/03/24 22:15 Nitroglycerin 0.4 mg Q5MINP PRN SL 12/03/24 23:45 Morphine Sulfate 2 mg Q30M PRN IV 12/03/24 23:45 12/04/24 02:26 2 MG Vancomycin HCl 0 ml @ 0 mls/hr UD IV 12/04/24 03:00 Prochlorperazine Edisylate 10 mg Q4HPRN PRN IV 12/04/24 03:00 12/04/24 04:05 10 MG Hydralazine HCl 10 mg Q6HP PRN IV 12/04/24 03:00 12/05/24 14:08 10 MG Morphine Sulfate 2 mg Q4HPRN PRN IV 12/04/24 04:45 12/05/24 20:17 2 MG Vancomycin HCl 100 ml @ 100 mls/hr Q12H IV 12/04/24 16:00 12/05/24 16:33 100 MLS/HR objective GENERAL: Alert and oriented x 3. No acute distress. EYES: PERRL, EOMI. Anicteric. HENT: Moist mucous membranes. LUNGS: Clear to auscultation bilaterally. CARDIOVASCULAR: Regular rate and rhythm. ABDOMEN: Soft, nontender and nondistended. EXTREMITIES: No edema. NEUROLOGIC: No focal neurological deficits. SKIN: Warm, dry. laboratory and microbiology Laboratory Tests 12/05/24 05:57 12/04/24 06:33 Test 12/04/24 06:33 Range/Units Serum Glucose 151 H 74-106 mg/dL Problem List Demand ischemia, NSTEMI likely type 2. Acute GI bleeding. Sepsis. GERD. DM type 2. Hypothyroidism. Assessment/Plan Continued all current supportive medical care. IV antibiotics as ordered. GI prophylactics. IV Hydralazine for SBP > 160. [place] and Morphine for pain management. Nitro SL. Additional plan as per the hospital course. Plan discussed with: Patient AVE KLINE MD Dec 05, 2024 21:49
[2024-12-06] VITALS (8 sets, daily range): BP systolic 105–173; BP diastolic 70–115; PULSE 51–63; RESP 15–19; TEMP 97.6–98.8; O2SAT 97–99
--- NOTE | 2024-12-06 08:01 | ECG ---
[facility] Test Date: 2024-12-04 Test Time: 11:02:33 Pat Name: DOROTHEA KENNEDY Department: Room: 0298T A Gender: F Office Aide: REGINALDO : 1985 Requested By: KARISSA VIEIRA Order Number: [id number] Reading MD: Juan Royal Measurements Intervals [place] Rate: 62 P: 1 [place]: 137 QRS: 18 QRSD: 85 T: 16 QT: 474 QTc: 482 Interpretive Statements Sinus rhythm Anteroseptal infarct, age indeterminate Electronically Signed On 12-06-2024 21:40:35 PDT by Juan Royal Please click the below link to view image of tracing.
--- NOTE | 2024-12-06 11:55 | ECG ---
[facility] Test Date: 2024-12-04 Test Time: 11:03:53 Pat Name: DOROTHEA KENNEDY Department: Room: 0298T A Gender: F [employer]: REGINALDO : 1985 Requested By: KARISSA VIEIRA Order Number: [id number] Reading MD: Juan Royal Measurements Intervals [place] Rate: 60 P: 2 [place]: 131 QRS: 17 QRSD: 88 T: 18 QT: 480 QTc: 480 Interpretive Statements Sinus rhythm Anteroseptal infarct, age indeterminate Electronically Signed On 12-06-2024 21:40:40 PDT by Juan Royal Please click the below link to view image of tracing.
--- NOTE | 2024-12-06 12:00 | MEDREC ---
[facility] ASP Intervention Section I [facility] ASP Intervention: Review courses of therapy (PLEASE CONSIDER D/C ANTIBIOTIC IN ABSENCE OF BACTERIAL INFECTION - IN CASE OF SEPSIS, PLEASE CONSIDER ADDING GRAM NEGATIVE COVERAGE) ELIO NAPIER PHARMACIST Dec 06, 2024 12:00
--- NOTE | 2024-12-06 12:54 | DVHPN2 ---
Subjective Patient is still complaining of burning abdominal pain Having nausea and vomiting with red blood, five episodes this a.m. Last EGD 2-3 years ago at [facility] diagnosed with celiac disease Reviewed: Care Plan Changes from previous H/P or p: No Changes Eyes: No Pain, No Vision change, No Conjunctivae inflammation, No Eyelid inflammation, No Other, No Redness ENT: No Ear pain, No Ear discharge, No Nose pain, No Nose discharge, No Nose congestion, No Mouth pain, No Mouth swelling, No Throat pain, No Throat swelling, No Other Cardiovascular: No Chest Pain, No Palpitations, No Orthopnea, No Paroxysmal Noc. Dyspnea, No Edema, No Lt Headedness, No Other Respiratory: No Cough, No Dry, No Shortness of breath, No SOB with excertion, No Wheezing, No Hemoptysis, No Pleuritic Pain, No Sputum, No Other Gastrointestinal: Nausea, Vomiting, Abdominal Pain, Other Genitourinary: Dysuria Musculoskeletal: No other, No neck pain, No shoulder pain, No arm pain, No back pain, No hand pain, No leg pain, No foot pain Skin: No Rash, No Lesions, No Jaundice, No Bruising, No Other Objective Vitals Vital Signs Date Time Temp Pulse Resp B/P (MAP) Pulse Ox O2 Delivery O2 Flow Rate FiO2 12/06/24 11:17 58 16 126/77 12/06/24 09:00 98.0 97 98.0 12/06/24 08:00 Room Air* 0 21 Intake/Output Intake and Output 12/06/24 07:00 Intake Total 1749 ml Output Total 0 ml Balance 1749 ml Intake Oral 1249 ml IV Total 500 ml Output Urine Total 0 ml # Voids 3 General Appearance: Alert, Oriented X3, Cooperative, No acute distress, mild distress, moderate distress, severe distress, Other Lungs: Clear to auscultation, Normal air movement, Other Cardiovascular: Regular rate, Normal S1, Normal S2, No murmurs, Gallops, Rubs, Other Abdomen: Normal bowel sounds, Soft, No tenderness, No hepatospenomegaly, No masses, Other (Upper abdomen tenderness) Medications Current Medications Medications Dose Ordered Sig/Zach Route Start Time Stop Time Status Last Admin Dose Admin Pantoprazole Sodium 40 mg BID IV 12/04/24 10:00 12/06/24 10:35 40 MG Atorvastatin Calcium 20 mg HS PO 12/04/24 22:00 12/05/24 21:38 20 MG Metoprolol Tartrate 25 mg BID PO 12/04/24 10:00 12/05/24 21:38 25 MG Amlodipine Besylate 5 mg DAILY PO 12/04/24 10:00 12/06/24 10:34 5 MG Metronidazole 100 ml @ 100 mls/hr Q8HR IV 12/04/24 06:00 12/06/24 06:31 100 MLS/HR Diagnostic Test (Pha) 1 strip ACHS 12/04/24 07:00 12/06/24 11:30 1 STRIP Insulin Human Regular HS SC 12/04/24 22:00 12/05/24 21:48 3 UNITS Insulin Human Regular AC SC 12/04/24 07:00 12/06/24 11:30 2 UNITS Dextrose 50 ml UD PRN IV 12/03/24 22:15 Sodium Chloride 10 ml Q8HR IV 12/04/24 06:00 12/06/24 06:31 10 ML Acetaminophen/ Hydrocodone Bitart 1 tab Q4HP PRN PO 12/03/24 22:15 12/05/24 16:50 1 TAB Ondansetron HCl 4 mg Q4HP PRN IV 12/03/24 22:15 12/06/24 10:46 4 MG Docusate Sodium 100 mg BIDPRN PRN PO 12/03/24 22:15 Acetaminophen 650 mg Q6HP PRN PO 12/03/24 22:15 Nitroglycerin 0.4 mg Q5MINP PRN SL 12/03/24 23:45 Morphine Sulfate 2 mg Q30M PRN IV 12/03/24 23:45 12/04/24 02:26 2 MG Vancomycin HCl 0 ml @ 0 mls/hr UD IV 12/04/24 03:00 Prochlorperazine Edisylate 10 mg Q4HPRN PRN IV 12/04/24 03:00 12/04/24 04:05 10 MG Hydralazine HCl 10 mg Q6HP PRN IV 12/04/24 03:00 12/05/24 14:08 10 MG Morphine Sulfate 2 mg Q4HPRN PRN IV 12/04/24 04:45 12/06/24 10:47 2 MG Vancomycin HCl 200 ml @ 200 mls/hr Q12H IV 12/06/24 16:00 Laboratory Results Laboratory Tests 12/04/24 06:33 12/05/24 05:57 12/06/24 02:41 Urinalysis Test 12/05/24 07:18 Urine Color Light-orange (Yellow) Urine Clarity Turbid (Clear) H Urine pH 7.0 (5.0-9.0) Urine Specific [place] 1.018 (1.001-1.035) Urine Protein 1+ (Negative) H Urine Ketones Negative (Negative) Urine Blood Negative /uL (Negative) Urine Nitrite Negative (Negative) Urine Bilirubin Negative (Negative) Urine Urobilinogen Normal mg/dL (Negative) Urine Leukocyte Esterase Negative /uL (Negative) Urine RBC 2 /hpf (0 - 4) Urine Microscopic WBC 9 /HPF (0-5) H Urine Squamous Epithelial Cells Mod /hpf (<5) Urine Bacteria None seen /hpf (None Seen) Urine Mucus Few (None Seen) Urine Glucose 4+ mg/dL (Normal) H Microbiology Microbiology Date/Time Source Procedure Growth Status 12/03/24 22:05 Blood Blood Culture - Preliminary NO GROWTH AFTER 48 HOURS OF INCUBATION. Resulted Assessment/Plan Assessment/Plan 1. History of celiac disease 2. History GERD 3. Number nausea and vomiting 4. History of marijuana use 5. GI bleeding 6. Elevated troponin Plan Discussed with Dr. Peacock Continue Protonix and Zofran Clear liquid diet We will continue to monitor patient Plan discussed with: Patient Date of Service: Dec 06, 2024 Billing Provider: MIKE MARQUEZ Common Visit Codes: [id number] INP/OBS CARE(HIGH) MIKE MARQUEZ Dec 06, 2024 12:54
[2024-12-06] MEDS: VANCOMYCIN 1GM/200ML PM 200 ML IV SCH (16:13)
--- NOTE | 2024-12-06 16:45 | DVHPN2 ---
Subjective 39-year-old female with a known history of diabetes mellitus type 2, hypothyroidism, GERD, history of celiac disease, chronic marijuana use presented to the hospital with the abdominal pain nausea and vomiting and some blood in vomiting found to have elevated troponin as well. Patient is still complaining of nausea and vomiting and abdominal pain. Reviewed: Care Plan Changes from previous H/P or p: No Changes Eyes: No Pain, No Vision change, No Conjunctivae inflammation, No Eyelid inflammation, No Other, No Redness ENT: No Ear pain, No Ear discharge, No Nose pain, No Nose discharge, No Nose congestion, No Mouth pain, No Mouth swelling, No Throat pain, No Throat swelling, No Other Cardiovascular: No Chest Pain, No Palpitations, No Orthopnea, No Paroxysmal Noc. Dyspnea, No Edema, No Lt Headedness, No Other Respiratory: No Cough, No Dry, No Shortness of breath, No SOB with excertion, No Wheezing, No Hemoptysis, No Pleuritic Pain, No Sputum, No Other Gastrointestinal: Nausea, Vomiting, Abdominal Pain, Other Genitourinary: Dysuria Musculoskeletal: No other, No neck pain, No shoulder pain, No arm pain, No back pain, No hand pain, No leg pain, No foot pain Skin: No Rash, No Lesions, No Jaundice, No Bruising, No Other Objective Vitals Vital Signs Date Time Temp Pulse Resp B/P (MAP) Pulse Ox O2 Delivery O2 Flow Rate FiO2 12/06/24 16:02 63 18 136/83 12/06/24 13:00 98.7 99 98.7 12/06/24 08:00 Room Air* 0 21 Intake/Output Intake and Output 12/06/24 07:00 Intake Total 1749 ml Output Total 0 ml Balance 1749 ml Intake Oral 1249 ml IV Total 500 ml Output Urine Total 0 ml # Voids 3 Exam HEENT pupils are reactive Neck is supple CV is S1-S2 regular rate and rhythm Respiratory are clear GI positive bowel sounds soft nondistended mildly tender in epigastric region 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 General Appearance: Alert, Oriented X3, Cooperative, No acute distress, mild distress, moderate distress, severe distress, Other Lungs: Clear to auscultation, Normal air movement, Other Cardiovascular: Regular rate, Normal S1, Normal S2, No murmurs, Gallops, Rubs, Other Abdomen: Normal bowel sounds, Soft, No tenderness, No hepatospenomegaly, No masses, Other (Upper abdomen tenderness) Medications Current Medications Medications Dose Ordered Sig/Zach Route Start Time Stop Time Status Last Admin Dose Admin Pantoprazole Sodium 40 mg BID IV 12/04/24 10:00 12/06/24 10:35 40 MG Atorvastatin Calcium 20 mg HS PO 12/04/24 22:00 12/05/24 21:38 20 MG Metoprolol Tartrate 25 mg BID PO 12/04/24 10:00 12/05/24 21:38 25 MG Amlodipine Besylate 5 mg DAILY PO 12/04/24 10:00 12/06/24 10:34 5 MG Metronidazole 100 ml @ 100 mls/hr Q8HR IV 12/04/24 06:00 12/06/24 14:49 100 MLS/HR Diagnostic Test (Pha) 1 strip ACHS 12/04/24 07:00 12/06/24 11:30 1 STRIP Insulin Human Regular HS SC 12/04/24 22:00 12/05/24 21:48 3 UNITS Insulin Human Regular AC SC 12/04/24 07:00 12/06/24 11:30 2 UNITS Dextrose 50 ml UD PRN IV 12/03/24 22:15 Sodium Chloride 10 ml Q8HR IV 12/04/24 06:00 12/06/24 14:49 10 ML Acetaminophen/ Hydrocodone Bitart 1 tab Q4HP PRN PO 12/03/24 22:15 12/05/24 16:50 1 TAB Ondansetron HCl 4 mg Q4HP PRN IV 12/03/24 22:15 12/06/24 16:01 4 MG Docusate Sodium 100 mg BIDPRN PRN PO 12/03/24 22:15 Acetaminophen 650 mg Q6HP PRN PO 12/03/24 22:15 Nitroglycerin 0.4 mg Q5MINP PRN SL 12/03/24 23:45 Morphine Sulfate 2 mg Q30M PRN IV 12/03/24 23:45 12/04/24 02:26 2 MG Vancomycin HCl 0 ml @ 0 mls/hr UD IV 12/04/24 03:00 Prochlorperazine Edisylate 10 mg Q4HPRN PRN IV 12/04/24 03:00 12/04/24 04:05 10 MG Hydralazine HCl 10 mg Q6HP PRN IV 12/04/24 03:00 12/05/24 14:08 10 MG Morphine Sulfate 2 mg Q4HPRN PRN IV 12/04/24 04:45 12/06/24 16:02 2 MG Vancomycin HCl 200 ml @ 200 mls/hr Q12H IV 12/06/24 16:00 12/06/24 16:13 200 MLS/HR Laboratory Results Laboratory Tests 12/04/24 06:33 12/05/24 05:57 12/06/24 02:41 Urinalysis Test 12/05/24 07:18 Urine Color Light-orange (Yellow) Urine Clarity Turbid (Clear) H Urine pH 7.0 (5.0-9.0) Urine Specific [place] 1.018 (1.001-1.035) Urine Protein 1+ (Negative) H Urine Ketones Negative (Negative) Urine Blood Negative /uL (Negative) Urine Nitrite Negative (Negative) Urine Bilirubin Negative (Negative) Urine Urobilinogen Normal mg/dL (Negative) Urine Leukocyte Esterase Negative /uL (Negative) Urine RBC 2 /hpf (0 - 4) Urine Microscopic WBC 9 /HPF (0-5) H Urine Squamous Epithelial Cells Mod /hpf (<5) Urine Bacteria None seen /hpf (None Seen) Urine Mucus Few (None Seen) Urine Glucose 4+ mg/dL (Normal) H Microbiology Microbiology Date/Time Source Procedure Growth Status 12/03/24 22:05 Blood Blood Culture - Preliminary NO GROWTH AFTER 48 HOURS OF INCUBATION. Resulted Assessment/Plan Assessment/Plan 39-year-old female with a known history of diabetes mellitus type 2, hypothyroidism, GERD, chronic marijuana use who initially presented to the hospital with the abdominal pain nausea and vomiting found to have 1. Abdominal pain nausea and vomiting suspect cyclic vomiting syndrome secondary to chronic marijuana use 2. Rule out upper GI bleed 3. NSTEMI suspect type 2 secondary to demand ischemia does not seem to be acute coronary syndrome 4. Diabetes mellitus type 2 5. Hypothyroidism 6. GERD 7. History of celiac disease -pain meds, antiemetics, Protonix, follow up with GI and Cardiology recommendations. -EGD if indicated. Plan discussed with: Patient Date of Service: Dec 06, 2024 Billing Provider: GIANCARLO VANCE MD Common Visit Codes: [id number] INP/OBS CARE(MOD) GIANCARLO VANCE MD Dec 06, 2024 16:45
--- NOTE | 2024-12-06 22:52 | DVHPN2 ---
Progress Note - Dictate Date Seen: Dec 06, 2024 Medical Necessity Reason Pt with a Central, PICC or Fol: No Subjective Patient was seen and evaluated in follow up. Patient complains of burning abdominal pain. Patient had 5 episodes of hematemesis. Patient states her last EGD was 2-3 years ago at [facility] [place] diagnosed with celiac disease. Telemetry reviewed. vital signs Vital Sign Date Time Temp Pulse Resp B/P (MAP) Pulse Ox O2 Delivery O2 Flow Rate FiO2 12/06/24 11:17 58 16 126/77 12/06/24 09:00 98.0 97 98.0 12/06/24 08:00 Room Air* 0 21 Total Intake and Output 12/05/24 12/05/24 12/06/24 15:00 23:00 07:00 Intake Total 336 ml 818 ml 595 ml Output Total 0 ml Balance 336 ml 818 ml 595 ml medications Current Medications Medications Dose Ordered Sig/Zach Route Start Time Stop Time Status Last Admin Dose Admin Pantoprazole Sodium 40 mg BID IV 12/04/24 10:00 12/06/24 10:35 40 MG Atorvastatin Calcium 20 mg HS PO 12/04/24 22:00 12/05/24 21:38 20 MG Metoprolol Tartrate 25 mg BID PO 12/04/24 10:00 12/05/24 21:38 25 MG Amlodipine Besylate 5 mg DAILY PO 12/04/24 10:00 12/06/24 10:34 5 MG Metronidazole 100 ml @ 100 mls/hr Q8HR IV 12/04/24 06:00 12/06/24 06:31 100 MLS/HR Diagnostic Test (Pha) 1 strip ACHS 12/04/24 07:00 12/06/24 11:30 1 STRIP Insulin Human Regular HS SC 12/04/24 22:00 12/05/24 21:48 3 UNITS Insulin Human Regular AC SC 12/04/24 07:00 12/06/24 11:30 2 UNITS Dextrose 50 ml UD PRN IV 12/03/24 22:15 Sodium Chloride 10 ml Q8HR IV 12/04/24 06:00 12/06/24 06:31 10 ML Acetaminophen/ Hydrocodone Bitart 1 tab Q4HP PRN PO 12/03/24 22:15 12/05/24 16:50 1 TAB Ondansetron HCl 4 mg Q4HP PRN IV 12/03/24 22:15 12/06/24 10:46 4 MG Docusate Sodium 100 mg BIDPRN PRN PO 12/03/24 22:15 Acetaminophen 650 mg Q6HP PRN PO 12/03/24 22:15 Nitroglycerin 0.4 mg Q5MINP PRN SL 12/03/24 23:45 Morphine Sulfate 2 mg Q30M PRN IV 12/03/24 23:45 12/04/24 02:26 2 MG Vancomycin HCl 0 ml @ 0 mls/hr UD IV 12/04/24 03:00 Prochlorperazine Edisylate 10 mg Q4HPRN PRN IV 12/04/24 03:00 12/04/24 04:05 10 MG Hydralazine HCl 10 mg Q6HP PRN IV 12/04/24 03:00 12/05/24 14:08 10 MG Morphine Sulfate 2 mg Q4HPRN PRN IV 12/04/24 04:45 12/06/24 10:47 2 MG Vancomycin HCl 200 ml @ 200 mls/hr Q12H IV 12/06/24 16:00 objective GENERAL: Alert and oriented x 3. No acute distress. EYES: PERRL, EOMI. Anicteric. HENT: Moist mucous membranes. LUNGS: Clear to auscultation bilaterally. CARDIOVASCULAR: Regular rate and rhythm. ABDOMEN: Soft, nontender and nondistended. EXTREMITIES: No edema. NEUROLOGIC: No focal neurological deficits. SKIN: Warm, dry. laboratory and microbiology Laboratory Tests 12/06/24 02:41 12/05/24 05:57 12/04/24 06:33 Test 12/04/24 06:33 Range/Units Serum Glucose 151 H 74-106 mg/dL Problem List Demand ischemia, NSTEMI likely type 2. Acute GI bleeding. Sepsis. GERD. DM type 2. Hypothyroidism. Assessment/Plan Continued all current supportive medical care. Morphine and [place] for pain management.Nitro SL. Amlodipine. Lipitor, Metoprolol. IV Hydralazine for SBP >150. IV antibiotics as ordered. GI prophylactics. Additional plan as per the hospital course. Plan discussed with: Patient AVE KLINE MD Dec 06, 2024 13:46
[2024-12-07] VITALS (10 sets, daily range): BP systolic 107–161; BP diastolic 70–91; PULSE 53–91; RESP 17–20; TEMP 96.7–99; O2SAT 97–100
--- NOTE | 2024-12-07 06:23 | ECG ---
[facility] Test Date: 2024-12-07 Test Time: 06:22:02 Pat Name: DOROTHEA KENNEDY Department: Room: 0298T A Gender: F [employer] Technician: STERLING : 1985 Requested By: LEE VELASQUEZ Order Number: [id number] Reading MD: Juan Royal Measurements Intervals [place] Rate: 53 P: 55 CA: 133 QRS: 35 QRSD: 87 T: 42 QT: 448 QTc: 421 Interpretive Statements Sinus rhythm Anteroseptal infarct, old Electronically Signed On 12-13-2024 18:31:15 PDT by Juan Royal Please click the below link to view image of tracing.
[2024-12-07 06:49] LABS: Alanine Aminotransferase 18 U/L (7-40); Albumin 3.8 g/dL (3.2-4.8); Alkaline Phosphatase 56 U/L (46-116); Anion Gap 9 (5-15); BUN/Creatinine Ratio 14.5 (10.0-20.0); Blood Urea Nitrogen 10 mg/dL (9-23); Calcium 8.7 mg/dL (8.7-10.4); Carbon Dioxide 26 mmol/L (20-31); Chloride 104 mmol/L (98-107); Potassium 3.5 mmol/L (3.5-5.1); Sodium 139 mmol/L (136-145)
[2024-12-07 06:50] LABS: Bilirubin, Total 1.0 mg/dL (0.2-1.0)
[2024-12-07 06:54] LABS: INR 1.11 (0.9-1.15); Partial Thromboplastin Time 26.7 SEC (24.5-34.5); Prothrombin Time 11.6 sec (9.3-11.8)
[2024-12-07 06:55] LABS: Glucose 112 mg/dL (74-106); Total Protein 5.3 g/dL (5.7-8.2)
--- NOTE | 2024-12-07 14:48 | DVHPN2 ---
Subjective Nausea has improved. She is NPO pending cardiac clearance for EGD today. Reviewed: Care Plan Changes from previous H/P or p: No Changes Gastrointestinal: Nausea, Vomiting, Abdominal Pain, Other Genitourinary: Dysuria Objective Vitals Vital Signs Date Time Temp Pulse Resp B/P (MAP) Pulse Ox O2 Delivery O2 Flow Rate FiO2 12/07/24 12:51 98.5 57 17 161/91 (114) 98 98.5 12/07/24 07:57 Room Air* 0 21 Intake/Output Intake and Output 12/07/24 07:00 Intake Total 1600 ml Balance 1600 ml Intake Oral 900 ml IV Total 700 ml # Voids 2 General Appearance: Alert, Oriented X3, Cooperative, No acute distress, mild distress, moderate distress, severe distress, Other Lungs: Clear to auscultation, Normal air movement, Other Cardiovascular: Regular rate, Normal S1, Normal S2, No murmurs, Gallops, Rubs, Other Abdomen: Normal bowel sounds, Soft, No tenderness, No hepatospenomegaly, No masses, Other (Upper abdomen tenderness) Medications Current Medications Medications Dose Ordered Sig/Zach Route Start Time Stop Time Status Last Admin Dose Admin Pantoprazole Sodium 40 mg BID IV 12/04/24 10:00 12/07/24 10:30 40 MG Atorvastatin Calcium 20 mg HS PO 12/04/24 22:00 12/06/24 21:43 20 MG Metoprolol Tartrate 25 mg BID PO 12/04/24 10:00 12/05/24 21:38 25 MG Amlodipine Besylate 5 mg DAILY PO 12/04/24 10:00 12/06/24 10:34 5 MG Metronidazole 100 ml @ 100 mls/hr Q8HR IV 12/04/24 06:00 12/07/24 06:42 100 MLS/HR Diagnostic Test (Pha) 1 strip ACHS 12/04/24 07:00 12/07/24 06:42 1 STRIP Insulin Human Regular HS SC 12/04/24 22:00 12/05/24 21:48 3 UNITS Insulin Human Regular AC SC 12/04/24 07:00 12/07/24 06:44 2 UNITS Dextrose 50 ml UD PRN IV 12/03/24 22:15 Sodium Chloride 10 ml Q8HR IV 12/04/24 06:00 12/07/24 06:42 10 ML Acetaminophen/ Hydrocodone Bitart 1 tab Q4HP PRN PO 12/03/24 22:15 12/06/24 23:23 1 TAB Ondansetron HCl 4 mg Q4HP PRN IV 12/03/24 22:15 12/07/24 10:31 4 MG Docusate Sodium 100 mg BIDPRN PRN PO 12/03/24 22:15 Acetaminophen 650 mg Q6HP PRN PO 12/03/24 22:15 Nitroglycerin 0.4 mg Q5MINP PRN SL 12/03/24 23:45 Morphine Sulfate 2 mg Q30M PRN IV 12/03/24 23:45 12/04/24 02:26 2 MG Vancomycin HCl 0 ml @ 0 mls/hr UD IV 12/04/24 03:00 Prochlorperazine Edisylate 10 mg Q4HPRN PRN IV 12/04/24 03:00 12/04/24 04:05 10 MG Hydralazine HCl 10 mg Q6HP PRN IV 12/04/24 03:00 12/05/24 14:08 10 MG Morphine Sulfate 2 mg Q4HPRN PRN IV 12/04/24 04:45 12/07/24 10:33 2 MG Vancomycin HCl 200 ml @ 200 mls/hr Q12H IV 12/06/24 16:00 12/07/24 04:58 200 MLS/HR Laboratory Results Laboratory Tests 12/05/24 05:57 12/07/24 04:33 Chemistry Test 12/07/24 04:33 Albumin 3.8 g/dL (3.2-4.8) Calcium Level 8.7 mg/dL (8.7-10.4) Total Protein 5.3 g/dL (5.7-8.2) L Coagulation Test 12/07/24 04:33 Prothrombin Time 11.6 sec (9.3-11.8) Prothrombin Time INR 1.11 (0.9-1.15) Activated Partial Thromboplast Time 26.7 SEC (24.5-34.5) LFT Test 12/07/24 04:33 Alanine Aminotransferase (ALT) 18 U/L (7-40) Alkaline Phosphatase 56 U/L (46-116) Aspartate Amino Transferase (AST) 20 U/L (13-40) Total Bilirubin 1.0 mg/dL (0.2-1.0) Urinalysis Test 12/05/24 07:18 Urine Color Light-orange (Yellow) Urine Clarity Turbid (Clear) H Urine pH 7.0 (5.0-9.0) Urine Specific Alfred 1.018 (1.001-1.035) Urine Protein 1+ (Negative) H Urine Ketones Negative (Negative) Urine Blood Negative /uL (Negative) Urine Nitrite Negative (Negative) Urine Bilirubin Negative (Negative) Urine Urobilinogen Normal mg/dL (Negative) Urine Leukocyte Esterase Negative /uL (Negative) Urine RBC 2 /hpf (0 - 4) Urine Microscopic WBC 9 /HPF (0-5) H Urine Squamous Epithelial Cells Mod /hpf (<5) Urine Bacteria None seen /hpf (None Seen) Urine Mucus Few (None Seen) Urine Glucose 4+ mg/dL (Normal) H Microbiology Microbiology Date/Time Source Procedure Growth Status 12/03/24 22:05 Blood Blood Culture - Preliminary NO GROWTH AFTER 72 HOURS OF INCUBATION. Resulted Assessment/Plan Assessment/Plan 1. Abdominal pain nausea and vomiting suspect cyclic vomiting syndrome secondary to chronic marijuana use 2. Rule out upper GI bleed 3. NSTEMI suspect type 2 secondary to demand ischemia does not seem to be acute coronary syndrome 4. Diabetes mellitus type 2 5. Hypothyroidism 6. GERD 7. History of celiac disease -pain meds, antiemetics, Protonix, follow up with GI and Cardiology recommendations. No changes to present care plan. Further clinical management per EGD findings. Discussed with the patient at bedside Plan discussed with: Patient, Other Problem List: (1) Abdominal pain (2) Generalized weakness Date of Service: Dec 07, 2024 Billing Provider: KALEB JIMENEZ MD Common Visit Codes: [id number] INP/OBS CARE(MOD) KALEB JIMENEZ MD Dec 07, 2024 14:48
--- NOTE | 2024-12-07 15:15 | DVHPN2 ---
Consult Progress Note Subjective Other Systems: Patient denies any cardiac symptoms at time of assessment. Patient currently reporting nausea Objective vital signs Vital Sign Date Time Temp Pulse Resp B/P (MAP) Pulse Ox O2 Delivery O2 Flow Rate FiO2 12/07/24 12:51 98.5 57 17 161/91 (114) 98 98.5 12/07/24 07:57 Room Air* 0 21 Total Intake and Output 12/06/24 12/06/24 12/07/24 15:00 23:00 07:00 Intake Total 100 ml 1300 ml 200 ml Balance 100 ml 1300 ml 200 ml medications Current Medications Medications Dose Ordered Sig/Zach Route Start Time Stop Time Status Last Admin Dose Admin Pantoprazole Sodium 40 mg BID IV 12/04/24 10:00 12/07/24 10:30 40 MG Atorvastatin Calcium 20 mg HS PO 12/04/24 22:00 12/06/24 21:43 20 MG Metoprolol Tartrate 25 mg BID PO 12/04/24 10:00 12/05/24 21:38 25 MG Amlodipine Besylate 5 mg DAILY PO 12/04/24 10:00 12/06/24 10:34 5 MG Metronidazole 100 ml @ 100 mls/hr Q8HR IV 12/04/24 06:00 12/07/24 06:42 100 MLS/HR Diagnostic Test (Pha) 1 strip ACHS 12/04/24 07:00 12/07/24 11:30 1 STRIP Insulin Human Regular HS SC 12/04/24 22:00 12/05/24 21:48 3 UNITS Insulin Human Regular AC SC 12/04/24 07:00 12/07/24 06:44 2 UNITS Dextrose 50 ml UD PRN IV 12/03/24 22:15 Sodium Chloride 10 ml Q8HR IV 12/04/24 06:00 12/07/24 06:42 10 ML Acetaminophen/ Hydrocodone Bitart 1 tab Q4HP PRN PO 12/03/24 22:15 12/06/24 23:23 1 TAB Ondansetron HCl 4 mg Q4HP PRN IV 12/03/24 22:15 12/07/24 10:31 4 MG Docusate Sodium 100 mg BIDPRN PRN PO 12/03/24 22:15 Acetaminophen 650 mg Q6HP PRN PO 12/03/24 22:15 Nitroglycerin 0.4 mg Q5MINP PRN SL 12/03/24 23:45 Morphine Sulfate 2 mg Q30M PRN IV 12/03/24 23:45 12/04/24 02:26 2 MG Vancomycin HCl 0 ml @ 0 mls/hr UD IV 12/04/24 03:00 Prochlorperazine Edisylate 10 mg Q4HPRN PRN IV 12/04/24 03:00 12/04/24 04:05 10 MG Hydralazine HCl 10 mg Q6HP PRN IV 12/04/24 03:00 12/05/24 14:08 10 MG Morphine Sulfate 2 mg Q4HPRN PRN IV 12/04/24 04:45 12/07/24 10:33 2 MG Vancomycin HCl 200 ml @ 200 mls/hr Q12H IV 12/06/24 16:00 12/07/24 04:58 200 MLS/HR Examination: GENERAL:Normal, LUNGS:Normal, CVS:Normal, NEURO:Normal laboratory and microbiology Laboratory Tests 12/07/24 04:33 12/05/24 05:57 Test 12/07/24 04:33 Range/Units Serum Glucose 112 H 74-106 mg/dL Problem List/Assessment/Plan Problem List/Assessment/Plan Preprocedural cardiovascular examination NSTEMI type 2 in the setting of GI bleed and sepsis Type 2 diabetes mellitus Thyroid disease GERD History of celiac disease Plan/recommendations (Dr. Cuevas): Transthoracic echocardiogram reveals an EF of 65% with normal valves. Chest x- ray done on this admission reveals no acute disease. Revised cardiac risk index (New criteria): 0 points (0.5% risk of major cardiac event). The patient has no underlying history of congestive heart failure, coronary artery disease or equivalent of cardiac symptoms. Prior to this admission, the patient reports a good functional capacity. Per Cardiology standpoint, the patient is at an acceptable risk for moderate risk surgery. There is no additional cardiac workup indicated prior to procedure. Thank you for allowing us to care for this patient. Please call with any questions or concerns. This medical document was created using an electronic medical record system with voice recognition software and computerized dictation system. Although this document has been carefully reviewed, there might still be some phonetic and typographical errors. Occasional wrong-word or ``sound-alike substitutions may have occurred due to the inherent limitations of voice recognition software. These areas are purely typographical due to imperfections of the software programs and do not reflect any compromise in the patient's medical care. Please read the chart carefully and recognize, using context, where these substitutions have occurred. Plan discussed with: Patient Date of Service: Dec 07, 2024 Billing Provider: SULLY GUPTA Common Visit Codes: [id number] INP/OBS CARE(HIGH) SULLY GUPTA Dec 07, 2024 15:15
[2024-12-07] MEDS ORDERED: SODIUM CHLORIDE LOCK 10 ML ONE (16:08)
[2024-12-07] MEDS: diphenhdrAMINE HCL 50 MG/1 ML VL ONE (16:16)
[2024-12-07] MEDS: MIDAZOLAM HCL 5 MG/ML-1ML VIAL ONE (16:16)
[2024-12-07] MEDS: fentaNYL CITRATE 100 MCG/2 ML VL ONE (16:16)
--- NOTE | 2024-12-07 16:55 | DVHOP2 ---
Operative Report DATE OF OPERATION: 12/07/24 PROCEDURE: Upper Endoscopy with biopsy PREOPERATIVE INDICATION: The patient is a 39 -year-old female undergoing endoscopy for nausea vomiting upper GI bleed dyspepsia POSTOPERATIVE DIAGNOSES: 1. Patient had evidence of candidal esophagitis with whitish yellowish plaques more prominent in the proximal esophagus 2. 1-2 cm sliding-type hiatal hernia with grade a erosive esophagitis 3. Mild gastritis otherwise normal examination up to the 2nd and 3rd part of the duodenum with no active bleeding PROCEDURE PERFORMED BY: Lee White GI NURSE: Tennille SCOPE: Olympus videoendoscope. ASA CLASS: 2. PREOPERATIVE MEDICATIONS: Versed 5 mg, Fentanyl 100 mcg, Benadryl 50 mg I administered moderate sedation throughout this _8_ minutes procedure. An independent trained observer pushed medications at my direction, and monitored the patient's level of consciousness and physiological status throughout. PROCEDURE IN DETAIL: After obtaining an informed consent, the patient was placed on left lateral decubitus position. The patient was then sedated with the above medications. A bite block was placed between her teeth. The endoscope was then passed through the oropharynx, into the esophagus, and through the stomach and pylorus up to the second and third part of the duodenum. The endoscope was then withdrawn. The 2nd and 3rd part of the duodenum and the duodenal bulb were normal. Duodenal biopsies were obtained The pre-pyloric area antrum and body showed mild gastritis. Gastric biopsies were obtained. On retroflexion the fundus cardia and angularis were normal. The endoscope was then withdrawn into distal esophagus Patient had a 1-2 cm sliding-type hiatal hernia with grade a erosive esophagitis. GE junction and esophageal biopsies were obtained There was evidence of candidal esophagitis most prominent in the proximal esophagus with some whitish plaques The patient tolerated the procedure well without difficulty. COMPLICATIONS : None SPECIMENS: Duodenal biopsies Gastric biopsies Esophageal biopsies DISPOSITION: Transfer back to the floor Stable PLAN: 1. Await for biopsy result 2. Will place pt on Protonix 40 mg bid 3. Carafate suspension 1 g p.o. twice a day 4. Nystatin swish and swallow 5 mL p.o. three times a day 5. Resume soft mechanical diet advance as tolerated LEE WHITE MD Dec 07, 2024 16:55
[2024-12-07] MEDS: SUCRALFATE 1 GM/10 ML ORAL SUSP PO SCH (18:32)
[2024-12-07] MEDS: NYSTATIN (MOUTH-THROAT) 500,000 UNITS/5 ML SUSP MT SCH (18:32)
[2024-12-07] MEDS: VANCOMYCIN 1GM/200ML PM 200 ML IV SCH (18:55)
--- NOTE | 2024-12-07 21:52 | DVHPN2 ---
Progress Note - Dictate Date Seen: Dec 07, 2024 Medical Necessity Reason Pt with a Central, PICC or Fol: No Subjective Patient was seen and evaluated in follow up. Patient denies any cardiac symptoms at the time of assessment. Patient complains of severe burning abdominal pain and nausea. Patient is pending EGD by Dr. Frances White. BS are WNL. Telemetry reviewed. vital signs Vital Sign Date Time Temp Pulse Resp B/P (MAP) Pulse Ox O2 Delivery O2 Flow Rate FiO2 12/07/24 12:51 98.5 57 17 161/91 (114) 98 98.5 12/07/24 07:57 Room Air* 0 21 Total Intake and Output 12/06/24 12/06/24 12/07/24 15:00 23:00 07:00 Intake Total 100 ml 1300 ml 200 ml Balance 100 ml 1300 ml 200 ml medications Current Medications Medications Dose Ordered Sig/Zach Route Start Time Stop Time Status Last Admin Dose Admin Pantoprazole Sodium 40 mg BID IV 12/04/24 10:00 12/07/24 10:30 40 MG Atorvastatin Calcium 20 mg HS PO 12/04/24 22:00 12/06/24 21:43 20 MG Metoprolol Tartrate 25 mg BID PO 12/04/24 10:00 12/05/24 21:38 25 MG Amlodipine Besylate 5 mg DAILY PO 12/04/24 10:00 12/06/24 10:34 5 MG Metronidazole 100 ml @ 100 mls/hr Q8HR IV 12/04/24 06:00 12/07/24 06:42 100 MLS/HR Diagnostic Test (Pha) 1 strip ACHS 12/04/24 07:00 12/07/24 06:42 1 STRIP Insulin Human Regular HS SC 12/04/24 22:00 12/05/24 21:48 3 UNITS Insulin Human Regular AC SC 12/04/24 07:00 12/07/24 06:44 2 UNITS Dextrose 50 ml UD PRN IV 12/03/24 22:15 Sodium Chloride 10 ml Q8HR IV 12/04/24 06:00 12/07/24 06:42 10 ML Acetaminophen/ Hydrocodone Bitart 1 tab Q4HP PRN PO 12/03/24 22:15 12/06/24 23:23 1 TAB Ondansetron HCl 4 mg Q4HP PRN IV 12/03/24 22:15 8/5/25 10:31 4 MG Docusate Sodium 100 mg BIDPRN PRN PO 12/03/24 22:15 Acetaminophen 650 mg Q6HP PRN PO 12/03/24 22:15 Nitroglycerin 0.4 mg Q5MINP PRN SL 12/03/24 23:45 Morphine Sulfate 2 mg Q30M PRN IV 12/03/24 23:45 12/04/24 02:26 2 MG Vancomycin HCl 0 ml @ 0 mls/hr UD IV 12/04/24 03:00 Prochlorperazine Edisylate 10 mg Q4HPRN PRN IV 12/04/24 03:00 12/04/24 04:05 10 MG Hydralazine HCl 10 mg Q6HP PRN IV 12/04/24 03:00 12/05/24 14:08 10 MG Morphine Sulfate 2 mg Q4HPRN PRN IV 12/04/24 04:45 12/07/24 10:33 2 MG Vancomycin HCl 200 ml @ 200 mls/hr Q12H IV 12/06/24 16:00 12/07/24 04:58 200 MLS/HR objective GENERAL: Alert and oriented x 3. No acute distress. EYES: PERRL, EOMI. Anicteric. HENT: Moist mucous membranes. LUNGS: Clear to auscultation bilaterally. CARDIOVASCULAR: Regular rate and rhythm. ABDOMEN: Soft, nontender and nondistended. EXTREMITIES: No edema. NEUROLOGIC: No focal neurological deficits. SKIN: Warm, dry. laboratory and microbiology Laboratory Tests 12/07/24 04:33 12/05/24 05:57 Test 12/07/24 04:33 Range/Units Serum Glucose 112 H 74-106 mg/dL Problem List Preprocedural cardiovascular examination. NSTEMI type 2 in the setting of GI bleed and sepsis. Type 2 diabetes mellitus. Thyroid disease. GERD. History of celiac disease. Assessment/Plan Continued all current supportive medical care. Patient has been seen by Linda Cao NP on my behalf, her and I discussed the plan with the patient. Transthoracic echocardiogram reveals an EF of 65% with normal valves. Chest x-ray done on this admission reveals no acute disease. Revised cardiac risk index (New criteria): 0 points (0.5% risk of major cardiac event). The patient has no underlying history of congestive heart failure, coronary artery disease or equivalent of cardiac symptoms. Prior to this admission, the patient reports a good functional capacity. Per Cardiology standpoint, the patient is at an acceptable risk for moderate risk surgery. There is no additional cardiac workup indicated prior to procedure. Additional plan as per the hospital course. Visit Coding Cardiology Date of Service: Dec 07, 2024 Billing Provider: AVE KLINE MD Cardiology Common Codes: [id number] HOSP CARE(High Plan discussed with: Patient AVE KLINE MD Dec 07, 2024 13:09
[2024-12-08] VITALS (9 sets, daily range): BP systolic 94–126; BP diastolic 64–82; PULSE 46–75; RESP 7–19; TEMP 97.9–98.5; O2SAT 95–100
[2024-12-08] MEDS ORDERED: VANCOMYCIN 1GM/200ML PM 200 ML IV SCH (10:00)
[2024-12-08] MEDS: VANCOMYCIN 1GM/250ML KIT 250 ML IV SCH (10:17)
--- NOTE | 2024-12-08 14:27 | DVHPN2 ---
Progress Note - Dictate Date Seen: Dec 08, 2024 Medical Necessity Reason Pt with a Central, PICC or Fol: No Subjective No new complaints Patient seen at bedside She is sitting up in bed and feeling slightly better vital signs Vital Sign Date Time Temp Pulse Resp B/P (MAP) Pulse Ox O2 Delivery O2 Flow Rate FiO2 12/08/24 11:05 85 18 157/79 12/08/24 09:00 98.2 99 98.2 12/07/24 20:05 Room Air* 0 21 Total Intake and Output 12/07/24 12/07/24 12/08/24 15:00 23:00 07:00 Intake Total 100 ml 300 ml 664 ml Balance 100 ml 300 ml 664 ml medications Current Medications Medications Dose Ordered Sig/Zach Route Start Time Stop Time Status Last Admin Dose Admin Pantoprazole Sodium 40 mg BID IV 12/04/24 10:00 12/08/24 10:18 40 MG Metoprolol Tartrate 25 mg BID PO 12/04/24 10:00 12/08/24 10:19 25 MG Amlodipine Besylate 5 mg DAILY PO 12/04/24 10:00 12/08/24 10:19 5 MG Diagnostic Test (Pha) 1 strip ACHS 12/04/24 07:00 12/08/24 11:30 1 STRIP Insulin Human Regular HS SC 12/04/24 22:00 12/07/24 21:56 3 UNITS Insulin Human Regular AC SC 12/04/24 07:00 12/07/24 17:00 3 UNITS Dextrose 50 ml UD PRN IV 12/03/24 22:15 Sodium Chloride 10 ml Q8HR IV 12/04/24 06:00 12/08/24 06:37 10 ML Acetaminophen/ Hydrocodone Bitart 1 tab Q4HP PRN PO 12/03/24 22:15 12/06/24 23:23 1 TAB Ondansetron HCl 4 mg Q4HP PRN IV 12/03/24 22:15 12/08/24 11:05 4 MG Docusate Sodium 100 mg BIDPRN PRN PO 12/03/24 22:15 Acetaminophen 650 mg Q6HP PRN PO 12/03/24 22:15 Nitroglycerin 0.4 mg Q5MINP PRN SL 12/03/24 23:45 Morphine Sulfate 2 mg Q30M PRN IV 12/03/24 23:45 12/08/24 11:05 2 MG Vancomycin HCl 0 ml @ 0 mls/hr UD IV 12/04/24 03:00 Prochlorperazine Edisylate 10 mg Q4HPRN PRN IV 12/04/24 03:00 12/04/24 04:05 10 MG Hydralazine HCl 10 mg Q6HP PRN IV 12/04/24 03:00 12/05/24 14:08 10 MG Morphine Sulfate 2 mg Q4HPRN PRN IV 12/04/24 04:45 12/08/24 05:34 2 MG Sucralfate 1 gm QID@0600,1130,1700,2200 PO 12/07/24 17:00 12/08/24 12:33 1 GM Vancomycin HCl 250 ml @ 250 mls/hr Q12H IV 12/08/24 10:00 12/08/24 10:17 250 MLS/HR Nystatin 10 ml QID MT 12/08/24 18:00 Fluconazole 100 ml @ 100 mls/hr DAILY IV 12/09/24 10:00 objective General Appearance: Alert, Oriented X3, Cooperative, No acute distress, Lungs: Clear to auscultation, Normal air movement, Other Cardiovascular: Regular rate, Normal S1, Normal S2, No murmurs, Gallops, Rubs, Other Abdomen: Normal bowel sounds, Soft, No tenderness, No hepatospenomegaly, No masses, Medications laboratory and microbiology Laboratory Tests 12/08/24 03:04 12/07/24 04:33 12/05/24 05:57 Test 12/07/24 04:33 Range/Units Serum Glucose 112 H 74-106 mg/dL Problems(with codes): (1) Brianna esophagitis (2) Diabetes mellitus with hyperglycemia (3) Sepsis, unspecified organism (4) Acute renal injury (5) Elevated brain natriuretic peptide (BNP) level (6) Generalized weakness (7) Abdominal pain Prognosis Plan Continue nystatin swish and swallow 5 mL p.o. three times a day Continue Protonix 40 mg p.o. twice a day Continue Carafate 1 g p.o. twice a day Advance diet as tolerated Supportive care Outpatient follow up with GI Services upon discharge Dietary Evaluation Review Comments: 1) Advance CCHO 60gm + cardiac diet as medically feasible 2) Continue current plan of care Expected Outcomes/Goals: To meet >75% estimated needs Fu 3-5 days Plan discussed with: Patient LEE VELASQUEZ MD Dec 08, 2024 14:27
[2024-12-08] MEDS: FLUCONAZOLE 200MG/100ML 100 ML IV ONE (15:41)
--- NOTE | 2024-12-08 15:57 | DVHPN2 ---
Subjective Status post EGD today shows a severe esophagitis. Patient is tolerating liquid diet. Recommended to continue nystatin. Advance diet as tolerated. Reviewed: Care Plan Changes from previous H/P or p: No Changes Genitourinary: Dysuria Objective Vitals Vital Signs Date Time Temp Pulse Resp B/P (MAP) Pulse Ox O2 Delivery O2 Flow Rate FiO2 12/08/24 11:05 85 18 157/79 12/08/24 09:00 98.2 99 98.2 12/07/24 20:05 Room Air* 0 21 Intake/Output Intake and Output 12/08/24 07:00 Intake Total 1064 ml Balance 1064 ml Intake Oral 564 ml IV Total 500 ml # Voids 6 # Bowel Movements 2 General Appearance: Alert, Oriented X3, Cooperative, No acute distress, mild distress, moderate distress, severe distress, Other Lungs: Clear to auscultation, Normal air movement, Other Cardiovascular: Regular rate, Normal S1, Normal S2, No murmurs, Gallops, Rubs, Other Abdomen: Normal bowel sounds, Soft, No tenderness, No hepatospenomegaly, No masses, Other (Upper abdomen tenderness) Medications Current Medications Medications Dose Ordered Sig/Zach Route Start Time Stop Time Status Last Admin Dose Admin Metoprolol Tartrate 25 mg BID PO 12/04/24 10:00 12/08/24 10:19 25 MG Amlodipine Besylate 5 mg DAILY PO 12/04/24 10:00 12/08/24 10:19 5 MG Diagnostic Test (Pha) 1 strip ACHS 12/04/24 07:00 12/08/24 11:30 1 STRIP Insulin Human Regular AC SC 12/04/24 07:00 12/07/24 17:00 3 UNITS Dextrose 50 ml UD PRN IV 12/03/24 22:15 Sodium Chloride 10 ml Q8HR IV 12/04/24 06:00 12/08/24 06:37 10 ML Acetaminophen/ Hydrocodone Bitart 1 tab Q4HP PRN PO 12/03/24 22:15 12/06/24 23:23 1 TAB Ondansetron HCl 4 mg Q4HP PRN IV 12/03/24 22:15 12/08/24 11:05 4 MG Docusate Sodium 100 mg BIDPRN PRN PO 12/03/24 22:15 Acetaminophen 650 mg Q6HP PRN PO 12/03/24 22:15 Nitroglycerin 0.4 mg Q5MINP PRN SL 12/03/24 23:45 Morphine Sulfate 2 mg Q30M PRN IV 12/03/24 23:45 12/08/24 11:05 2 MG Prochlorperazine Edisylate 10 mg Q4HPRN PRN IV 12/04/24 03:00 12/04/24 04:05 10 MG Hydralazine HCl 10 mg Q6HP PRN IV 12/04/24 03:00 12/05/24 14:08 10 MG Morphine Sulfate 2 mg Q4HPRN PRN IV 12/04/24 04:45 12/08/24 05:34 2 MG Sucralfate 1 gm QID@0600,1130,1700,2200 PO 12/07/24 17:00 12/08/24 12:33 1 GM Nystatin 10 ml QID MT 12/08/24 18:00 Fluconazole 100 ml @ 100 mls/hr DAILY IV 12/09/24 10:00 Pantoprazole Sodium 40 mg BID@0600,1700 PO 12/08/24 17:00 UNV Laboratory Results Laboratory Tests 12/05/24 05:57 12/07/24 04:33 12/08/24 03:04 Urinalysis Test 12/05/24 07:18 Urine Color Light-orange (Yellow) Urine Clarity Turbid (Clear) H Urine pH 7.0 (5.0-9.0) Urine Specific [place] 1.018 (1.001-1.035) Urine Protein 1+ (Negative) H Urine Ketones Negative (Negative) Urine Blood Negative /uL (Negative) Urine Nitrite Negative (Negative) Urine Bilirubin Negative (Negative) Urine Urobilinogen Normal mg/dL (Negative) Urine Leukocyte Esterase Negative /uL (Negative) Urine RBC 2 /hpf (0 - 4) Urine Microscopic WBC 9 /HPF (0-5) H Urine Squamous Epithelial Cells Mod /hpf (<5) Urine Bacteria None seen /hpf (None Seen) Urine Mucus Few (None Seen) Urine Glucose 4+ mg/dL (Normal) H Microbiology Microbiology Date/Time Source Procedure Growth Status 12/03/24 22:05 Blood Blood Culture - Preliminary NO GROWTH AFTER 72 HOURS OF INCUBATION. Resulted Assessment/Plan Assessment/Plan 1. Abdominal pain nausea and vomiting suspect cyclic vomiting syndrome secondary to chronic marijuana use 2. Rule out upper GI bleed 3. NSTEMI suspect type 2 secondary to demand ischemia does not seem to be acute coronary syndrome 4. Diabetes mellitus type 2 5. Hypothyroidism 6. GERD 7. History of celiac disease Continue IV Diflucan while in the hospital plus nystatin orally and proton pump inhibitor orally. Advance diet tonight as she tolerates. If she remains stable discharge home tomorrow. Discussed with the patient. Plan discussed with: Patient, Other My Orders Orders - KALEB JIMENEZ MD Procedure Category Date Status Time Nystatin PHA 12/08/24 In Process (Mouth-Throat) 18:00 Fluconazole PHA 12/09/24 In Process 200mg/100ml (Diflucan 10:00 Discontinue Tele DARSHANA 12/08/24 In Process 12:24 Pantoprazole Tablet PHA 12/08/24 Transmitted (Protonix Tablet) 17:00 Basic Metabolic Panel LAB 12/08/24 Verified 15:54 Complete Blood Count LAB 12/08/24 Verified 15:54 Date of Service: Dec 08, 2024 Billing Provider: KALEB JIMENEZ MD Common Visit Codes: [id number] INP/OBS CARE(MOD) KALEB JIMENEZ MD Dec 08, 2024 15:57
[2024-12-08 16:29] LABS: Potassium 3.9 mmol/L (3.5-5.1); Sodium 144 mmol/L (136-145)
[2024-12-08 16:30] LABS: Anion Gap 8 (5-15); Carbon Dioxide 29 mmol/L (20-31)
[2024-12-08 16:35] LABS: BUN/Creatinine Ratio 12.7 (10.0-20.0); Glucose 98 mg/dL (74-106)
[2024-12-08 16:44] LABS: Blood Urea Nitrogen 9 mg/dL (9-23); Calcium 8.7 mg/dL (8.7-10.4); Chloride 107 mmol/L (98-107)
[2024-12-08] MEDS: PANTOPRAZOLE 40 MG TAB PO SCH (17:00)
[2024-12-08] MEDS: NYSTATIN (MOUTH-THROAT) 500,000 UNITS/5 ML SUSP MT SCH (18:00)
[2024-12-08 19:25] LABS: Hematocrit 37.8 % (36.0-46.0); Hemoglobin 12.7 g/dL (12.2-16.2); Mean Corpuscular Hemoglobin 27.3 pg (28.0-32.0); Mean Corpuscular Volume 81.4 fL (80.0-100.0); Nucleated Red Blood Cells % 0.0 %
--- NOTE | 2024-12-08 23:50 | DVHPN2 ---
Progress Note - Dictate Date Seen: Dec 08, 2024 Medical Necessity Reason Pt with a Central, PICC or Fol: No Subjective Patient was seen and evaluated in follow up. Patient is status post EGD by Dr. Frances White which showed severe esophagitis. Patient's diet is being advanced as tolerated. BS are WNL. Telemetry reviewed. vital signs Vital Sign Date Time Temp Pulse Resp B/P (MAP) Pulse Ox O2 Delivery O2 Flow Rate FiO2 12/08/24 11:05 85 18 157/79 12/08/24 09:00 98.2 99 98.2 12/07/24 20:05 Room Air* 0 21 Total Intake and Output 12/07/24 12/07/24 12/08/24 15:00 23:00 07:00 Intake Total 100 ml 300 ml 664 ml Balance 100 ml 300 ml 664 ml medications Current Medications Medications Dose Ordered Sig/Zach Route Start Time Stop Time Status Last Admin Dose Admin Metoprolol Tartrate 25 mg BID PO 12/04/24 10:00 12/08/24 10:19 25 MG Amlodipine Besylate 5 mg DAILY PO 12/04/24 10:00 12/08/24 10:19 5 MG Diagnostic Test (Pha) 1 strip ACHS 12/04/24 07:00 12/08/24 11:30 1 STRIP Insulin Human Regular AC SC 12/04/24 07:00 12/07/24 17:00 3 UNITS Dextrose 50 ml UD PRN IV 12/03/24 22:15 Sodium Chloride 10 ml Q8HR IV 12/04/24 06:00 12/08/24 14:00 10 ML Acetaminophen/ Hydrocodone Bitart 1 tab Q4HP PRN PO 12/03/24 22:15 12/06/24 23:23 1 TAB Ondansetron HCl 4 mg Q4HP PRN IV 12/03/24 22:15 12/08/24 11:05 4 MG Docusate Sodium 100 mg BIDPRN PRN PO 12/03/24 22:15 Acetaminophen 650 mg Q6HP PRN PO 12/03/24 22:15 Nitroglycerin 0.4 mg Q5MINP PRN SL 12/03/24 23:45 Morphine Sulfate 2 mg Q30M PRN IV 12/03/24 23:45 12/08/24 11:05 2 MG Prochlorperazine Edisylate 10 mg Q4HPRN PRN IV 12/04/24 03:00 12/04/24 04:05 10 MG Hydralazine HCl 10 mg Q6HP PRN IV 12/04/24 03:00 12/05/24 14:08 10 MG Morphine Sulfate 2 mg Q4HPRN PRN IV 12/04/24 04:45 12/08/24 05:34 2 MG Sucralfate 1 gm QID@0600,1130,1700,2200 PO 12/07/24 17:00 12/08/24 12:33 1 GM Nystatin 10 ml QID MT 12/08/24 18:00 Fluconazole 100 ml @ 100 mls/hr DAILY IV 12/09/24 10:00 Pantoprazole Sodium 40 mg BID@0600,1700 PO 12/08/24 17:00 objective GENERAL: Alert and oriented x 3. No acute distress. EYES: PERRL, EOMI. Anicteric. HENT: Moist mucous membranes. LUNGS: Clear to auscultation bilaterally. CARDIOVASCULAR: Regular rate and rhythm. ABDOMEN: Soft, nontender and nondistended. EXTREMITIES: No edema. NEUROLOGIC: No focal neurological deficits. SKIN: Warm, dry. laboratory and microbiology Laboratory Tests 12/08/24 07:07 12/05/24 05:57 Test 12/08/24 07:07 Range/Units Serum Glucose 98 74-106 mg/dL Problem List Preprocedural cardiovascular examination. NSTEMI type 2 in the setting of GI bleed and sepsis. Type 2 diabetes mellitus. Thyroid disease. GERD. History of celiac disease. Assessment/Plan Continued all current supportive medical care. Morphine and [place] for pain management. Amlodipine. IV Hydralazine for SBP >150. Metoprolol. IV antibiotics as ordered. GI prophylactics. Additional plan as per the hospital course. Dietary Evaluation Review Comments: 1) Advance CCHO 60gm + cardiac diet as medically feasible 2) Continue current plan of care Expected Outcomes/Goals: To meet >75% estimated needs Fu 3-5 days Plan discussed with: Patient AVE KLINE MD Dec 08, 2024 17:36
[2024-12-09 01:00] VITALS: BP 118/82; PULSE 55; RESP 18; TEMP 98.5; O2SAT 99
[2024-12-09 05:00] VITALS: BP 130/90; PULSE 60; RESP 18; TEMP 98.3; O2SAT 99
[2024-12-09 08:00] VITALS: PULSE 55; RESP 18; O2SAT 98
[2024-12-09 09:00] VITALS: BP 121/80; PULSE 57; RESP 16; TEMP 98.8; O2SAT 95
[2024-12-09] MEDS ORDERED: SUCR1SUS26 PO (09:07)
[2024-12-09] MEDS ORDERED: FLUC200T PO (09:07)
[2024-12-09] MEDS ORDERED: NYS5LQ MT (09:07)
[2024-12-09] MEDS ORDERED: PANT40TA57 PO (09:07)
--- NOTE | 2024-12-09 09:09 | DVHDS2 ---
Discharge Summary Date of Admission Dec 03, 2024 at 23:35 Date of Discharge: Dec 09, 2024 Labs/Diagnostic Data: Laboratory Results Test 12/09/24 05:52 12/08/24 19:02 12/08/24 07:07 12/08/24 03:04 POC Glucose 160 mg/dl (70-106) White Blood Count 9.3 10^3/uL (4.4-10.8) Red Blood Count 4.64 10^6/uL (4.0-5.20) Hemoglobin 12.7 g/dL (12.2-16.2) Hematocrit 37.8 % (36.0-46.0) Mean Corpuscular Volume 81.4 fL (80.0-100.0) Mean Corpuscular Hemoglobin 27.3 pg (28.0-32.0) Mean Corpuscular Hemoglobin Concent 33.6 g/dL (32.0-36.0) Red Cell Distribution Width 14.8 % (11.8-14.3) Platelet Count 242 10^3/uL (140-450) Mean Platelet Volume 9.6 fL (6.9-10.8) Neutrophils (%) (Auto) 52.4 % (37.0-80.0) Lymphocytes (%) (Auto) 37.1 % (10.0-50.0) Monocytes (%) (Auto) 5.8 % (0.0-12.0) Eosinophils (%) (Auto) 3.5 % (0.0-7.0) Basophils (%) (Auto) 1.2 % (0.0-2.0) Neutrophils # (Auto) 4.9 10 ^3/uL (1.6-8.6) Lymphocytes # (Auto) 3.4 10 ^3/uL (0.4-5.4) Monocytes # (Auto) 0.5 10 ^3/uL (0-1.3) Eosinophils # (Auto) 0.3 10 ^3/uL (0-0.8) Basophils # (Auto) 0.1 10 ^3/uL (0-0.2) Nucleated Red Blood Cells 0.0 % Sodium Level 144 mmol/L (136-145) Potassium Level 3.9 mmol/L (3.5-5.1) Chloride Level 107 mmol/L (98-107) Carbon Dioxide Level 29 mmol/L (20-31) Anion Gap 8 (5-15) Blood Urea Nitrogen 9 mg/dL (9-23) Creatinine 0.71 mg/dL (0.550-1.02) Glomerular Filtration Rate Calc 111 mL/min (>90) BUN/Creatinine Ratio 12.7 (10.0-20.0) Serum Glucose 98 mg/dL (74-106) Calcium Level 8.7 mg/dL (8.7-10.4) Vancomycin Level Trough 10.2 ug/mL (5-10) HIV (1&2) Antibody Negative (Negative) Test 12/07/24 04:33 12/05/24 07:18 12/05/24 05:57 12/04/24 06:33 Prothrombin Time 11.6 sec (9.3-11.8) Prothrombin Time INR 1.11 (0.9-1.15) Activated Partial Thromboplast Time 26.7 SEC (24.5-34.5) Total Bilirubin 1.0 mg/dL (0.2-1.0) Aspartate Amino Transferase (AST) 20 U/L (13-40) Alanine Aminotransferase (ALT) 18 U/L (7-40) Alkaline Phosphatase 56 U/L (46-116) Total Protein 5.3 g/dL (5.7-8.2) Albumin 3.8 g/dL (3.2-4.8) Urine Color Light-orange (Yellow) Urine Clarity Turbid (Clear) Urine pH 7.0 (5.0-9.0) Urine Specific [place] 1.018 (1.001-1.035) Urine Protein 1+ (Negative) Urine Ketones Negative (Negative) Urine Blood Negative /uL (Negative) Urine Nitrite Negative (Negative) Urine Bilirubin Negative (Negative) Urine Urobilinogen Normal mg/dL (Negative) Urine Leukocyte Esterase Negative /uL (Negative) Urine RBC 2 /hpf (0 - 4) Urine Microscopic WBC 9 /HPF (0-5) Urine Squamous Epithelial Cells Mod /hpf (<5) Urine Bacteria None seen /hpf (None Seen) Urine Mucus Few (None Seen) Urine Glucose 4+ mg/dL (Normal) Troponin I High Sensitivity 74 ng/L (</=34) Hemoglobin A1c 6.6 % A1C (<5.7) Triglycerides Level 144 mg/dL (< 150) Cholesterol Level 199 mg/dL (< 200) LDL Cholesterol 139 mg/dL (< 100) HDL Cholesterol 44 mg/dL (40-59) Thyroid Stimulating Hormone (TSH) 0.30 uIU/mL (0.55-4.78) Test 12/04/24 00:17 12/03/24 20:21 Lactic Acid Level 1.2 mmol/L (0.4-2.0) B-Type Natriuretic Peptide 249.71 pg/mL (0-100) Lipase 53 U/L (12-53) Other Laboratory Tests 12/08/24 19:02 12/08/24 07:07 Brief Hx & Hospital Course: The patient is a 39-year-old female with multiple past medical history including DM, GERD, thyroid disease, and hypertension who presented to [facility] ED with complaint of generalized weakness. Patient reports she has been experiencing generalized weakness associated with diffuse abdominal pain rating 8/10 numeric scale, hematemesis, nausea, diarrhea, slight dysuria, and confusion state. Patient was seen and evaluated in the ED, laboratory data shows WBC 19.6, hemoglobin 16.6, hematocrit 48.2, platelets 390, sodium 141, potassium 3.2, BUN 19, creatinine 1.52, glucose 206, calcium 11.0, lipase 53, BNP 249.71, protein 8.3, albumin 5.7, troponin 409, lactic acid 3.3 trending down to 1.2, blood pressure 151/110 trending down to 155/91, heart rate 121 trending down to 80, temperature 98.8 F, O2 saturation 98% on room air. Abdomen/pelvis CT showed no acute abdominopelvic abnormality, evidence of urinary stones obstruction. Patient was given morphine sulfate 4 mg IV, Zofran 4 mg IV, please see medication orders section in the computer. On my assessment, patient denied chest pain, no headache, no dizziness, no diaphoresis, no shortness of breaths, no abdominal pain at this moment, no nausea, no vomiting, no fever, no chills. Patient was admitted for further evaluation and medical management. She is admitted and underwent cardiac and GI evaluations for her symptoms and presenting complaints. Patient noted to have demand ischemia recommended medical therapy by pressure test operator. Patient had a EGD showed esophagitis. She is started on medications per recommendations from GI physician. Patient's symptoms have improved. She is tolerating diet. Feeling better. Therefore it is felt she can be safely discharged home. However she is advised to have a close follow up with the pressure test operator as well as GI doctor Christopher and next 2-3 weeks and to follow up biopsy results her stomach from EGD. Given she has Brianna infection in the esophagus I have advised her to have close follow up with the PCP and GI physician to further manage as deemed appropriate. Patient verbalized understanding of this, verbalized understanding her EGD results, discharge medications, discharge diagnosis and agree with the discharge follow- up plan of care as outlined. Consults/Reason for consult Problems(with codes): (1) Brianna esophagitis (2) Diabetes mellitus with hyperglycemia (3) Sepsis, unspecified organism (4) Acute renal injury (5) Elevated brain natriuretic peptide (BNP) level (6) Generalized weakness (7) Abdominal pain Prognosis Plan Continue nystatin swish and swallow 5 mL p.o. three times a day Continue Protonix 40 mg p.o. twice a day Continue Carafate 1 g p.o. twice a day Advance diet as tolerated Supportive care Outpatient follow up with GI Services upon discharge Dietary Evaluation Review Comments: 1) Advance CCHO 60gm + cardiac diet as medically feasible 2) Continue current plan of care Expected Outcomes/Goals: To meet >75% estimated needs Fu 3-5 days Plan discussed with: Patient LEE VELASQUEZ MD Dec 08, 2024 14:27 Operations or Procedures Operative Report DATE OF OPERATION: 12/07/24 PROCEDURE: Upper Endoscopy with biopsy PREOPERATIVE INDICATION: The patient is a 39 -year-old female undergoing endoscopy for nausea vomiting upper GI bleed dyspepsia POSTOPERATIVE DIAGNOSES: 1. Patient had evidence of candidal esophagitis with whitish yellowish plaques more prominent in the proximal esophagus 2. 1-2 cm sliding-type hiatal hernia with grade a erosive esophagitis 3. Mild gastritis otherwise normal examination up to the 2nd and 3rd part of the duodenum with no active bleeding PROCEDURE PERFORMED BY: Lee Velasquez GI NURSE: [place] SCOPE: Olympus videoendoscope. ASA CLASS: 2. PREOPERATIVE MEDICATIONS: Versed 5 mg, Fentanyl 100 mcg, Benadryl 50 mg I administered moderate sedation throughout this _8_ minutes procedure. An independent trained observer pushed medications at my direction, and monitored the patient's level of consciousness and physiological status throughout. PROCEDURE IN DETAIL: After obtaining an informed consent, the patient was placed on left lateral decubitus position. The patient was then sedated with the above medications. A bite block was placed between her teeth. The endoscope was then passed through the oropharynx, into the esophagus, and through the stomach and pylorus up to the second and third part of the duodenum. The endoscope was then withdrawn. The 2nd and 3rd part of the duodenum and the duodenal bulb were normal. Duodenal biopsies were obtained The pre-pyloric area antrum and body showed mild gastritis. Gastric biopsies were obtained. On retroflexion the fundus cardia and angularis were normal. The endoscope was then withdrawn into distal esophagus Patient had a 1-2 cm sliding-type hiatal hernia with grade a erosive esophagitis. GE junction and esophageal biopsies were obtained There was evidence of candidal esophagitis most prominent in the proximal esophagus with some whitish plaques The patient tolerated the procedure well without difficulty. COMPLICATIONS : None SPECIMENS: Duodenal biopsies Gastric biopsies Esophageal biopsies DISPOSITION: Transfer back to the floor Stable PLAN: 1. Await for biopsy result 2. Will place pt on Protonix 40 mg bid 3. Carafate suspension 1 g p.o. twice a day 4. Nystatin swish and swallow 5 mL p.o. three times a day 5. Resume soft mechanical diet advance as tolerated LEE VELASQUEZ MD Dec 07, 2024 16:55 APPROVED REPORT EXAM: Two-dimensional and M-mode echocardiogram with Doppler and color Doppler. Blood Pressure: 92/57 mmHg INDICATION Elevated BNP RISK FACTORS Height: 5'0", Weight: 111 DIMENSIONS LVDd 4.2 (3.8-5.7cm) LA (2D) 3.6 (1.9-4.0cm) Aortic Root 3.2 (2.0- 3.7cm) LVDs 2.7 (2.5-4.0cm) LA (MM) (1.9-4.0cm) Aortic Cusp Exc 1.8 (1.5- 2.0cm) EF (%) 65.0 (55-70%) Rt. Atrium 2.9 (1.9-4.0cm) Asc. Aorta cm IVSd 1.2 (0.7-1.1cm) RV (D) (1.8-2.4cm) PWd 0.9 (0.7-1.1cm) Mitral Valve Mitral Mitral Stenosis E wave 0.56m/s MV Mean GR. mmHg A wave 0.71m/s MV Peak GR. mmHg E/A ratio 0.8 2D MVA cm2 DECEL Time 324ms PRESS 1/2 Time ms Aortic Valve Aortic Valve Aortic Stenosis V1 0.94m/s AO Mean GR. 4mmHg V2 1.66m/s AO Peak GR. 11mmHg LVOT Diameter 2.0 (1.8-2.4cm) Doppler PRECIOUS 1.78cm2 Pulmonic Valve V2 1.11m/s Conclusion LV EF IS 65% AND IS NORMAL NORMAL VALVES NORMAL RV FUNCTION AND SIZE NO EFFUSION SIGNED BY: AVE KLINE MD SIGNED DATE/TIME: 12/04/24 1515 Condition at Discharge: Stable Final Diagnosis/Problems List Severe esophagitis status post EGD, demand ischemia with elevated troponin, diabetes mellitus type 2 Discharge Disposition: Home Discharge Instruct/Medications Diet: Consistent carbohydrate, Cardiac 2g Na,low cholest Activity: No Restrictions, As Tolerated Follow Up/Referral: Primary care physician next week and forming process line worker Dr. Velasquez after two weeks for further evaluation and management of esophagitis Medications: Take medications as prescribed and home medications as you were taking. Scheduled Diphenhydramine Hcl (Banophen), 1 CAP PO QHSP, (Reported) Escitalopram Oxalate (Escitalopram Oxalate), 1 TAB PO DAILY, (Reported) Fluconazole (Diflucan), 1 TAB PO DAILY Glipizide (Glipizide), 1 TAB PO DAILY, (Reported) Lisinopril (Lisinopril), 1 TAB PO DAILY, (Reported) Metformin Hydrochloride (Metformin Hcl), 1 TAB PO BID, (Reported) Nystatin (Mouth-Throat) (Mycostatin (Mouth-Throat)), 5 ML MT QID Pantoprazole Sodium Sesquihydr (Pantoprazole Sodium Dr), 40 MG PO DAILY Simvastatin (Simvastatin), 1 TAB PO QPM, (Reported) Sucralfate (Carafate Susp), 10 ML PO QID Scheduled PRN Dicyclomine Hcl (Dicyclomine Hcl), 1 TAB PO TID PRN for UNSPECIFIED ABDOMINAL PAIN, (Reported) Discharge Statement: "Patient was advised to return to the ER or call 911 if any headaches, dizziness, shortness of breath, chest pain, abdominal pain, bleeding, fevers, or worsening of medical condition. Patient was counseled about treatment plan, medications, possible side effects, patientverbalized understanding. All questions were answered to the best of my ability. This discharge took greater then 30 minutes in planning, reviewing documentation, counseling the patient, and discussing with other team members." ASSESSMENT ASSESSMENT Assessment Severe esophagitis status post EGD, demand ischemia with elevated troponin, diabetes mellitus type 2 Date of Service: Dec 09, 2024 Billing Provider: KALEB JIMENEZ MD Common Visit Codes: 21497-YWV/OBS DISCH DAY <30MIN KALEB JIMENEZ MD Dec 09, 2024 09:09
[2024-12-09 09:31] VITALS: BP 118/82; PULSE 55
[2024-12-09] MEDS: FLUCONAZOLE 200MG/100ML 100 ML IV SCH (09:53)
--- NOTE | 2024-12-09 21:55 | DVHPN2 ---
Progress Note - Dictate Date Seen: Dec 09, 2024 Medical Necessity Reason Pt with a Central, PICC or Fol: No Subjective Patient was seen and evaluated in follow up. Patient has no new complaints at this time. Patient denies any cardiac symptoms. Patient is cardiac stable for discharge. Telemetry reviewed. vital signs Vital Sign Date Time Temp Pulse Resp B/P (MAP) Pulse Ox O2 Delivery O2 Flow Rate FiO2 12/09/24 09:55 130/90 12/09/24 09:55 60 12/09/24 09:00 98.8 16 95 98.8 12/09/24 08:00 Room Air* 0 21 Total Intake and Output 12/08/24 12/08/24 12/09/24 15:00 23:00 07:00 Intake Total 250 ml 575 ml 900 ml Balance 250 ml 575 ml 900 ml objective GENERAL: Alert and oriented x 3. No acute distress. EYES: PERRL, EOMI. Anicteric. HENT: Moist mucous membranes. LUNGS: Clear to auscultation bilaterally. CARDIOVASCULAR: Regular rate and rhythm. ABDOMEN: Soft, nontender and nondistended. EXTREMITIES: No edema. NEUROLOGIC: No focal neurological deficits. SKIN: Warm, dry. laboratory and microbiology Laboratory Tests 12/08/24 19:02 12/08/24 07:07 Test 12/08/24 07:07 Range/Units Serum Glucose 98 74-106 mg/dL Problem List Preprocedural cardiovascular examination. NSTEMI type 2 in the setting of GI bleed and sepsis. Type 2 diabetes mellitus. Thyroid disease. GERD. History of celiac disease. Assessment/Plan Continued all current supportive medical care. Morphine and [place] for pain management. Amlodipine. IV Hydralazine for SBP >150. Metoprolol. IV antibiotics as ordered. GI prophylactics. Additional plan as per the hospital course. Dietary Evaluation Review Comments: 1) Advance CCHO 60gm + cardiac diet as medically feasible 2) Continue current plan of care Expected Outcomes/Goals: To meet >75% estimated needs Fu 3-5 days Plan discussed with: Patient AVE KLINE MD Dec 09, 2024 21:55
== END 2024-12-09 12:30 | disposition home or self-care (01) | DRG 241 ==
LOC: ER 19:45 → TELE-WESTW 22:46 → OVERFLOW 23:35 → TELE-WESTW 12-04 03:21
PROVIDERS: ADMIT Hospitalist; ATTEND Hospitalist
PROC: 0DB58ZX Excision of Esophagus, Via Natural or Artificial Opening Endoscopic, Diagnostic (ICD-10-PCS; 2024-12-07)
PROC: 0DB98ZX Excision of Duodenum, Via Natural or Artificial Opening Endoscopic, Diagnostic (ICD-10-PCS; 2024-12-07)
PROC: 0DB68ZX Excision of Stomach, Via Natural or Artificial Opening Endoscopic, Diagnostic (ICD-10-PCS; principal; 2024-12-07 16:11)
DX: K29.71 Gastritis, unspecified, with bleeding (principal); N17.0 Acute kidney failure with tubular necrosis; I21.A1 Myocardial infarction type 2; K22.11 Ulcer of esophagus with bleeding; E11.65 Type 2 diabetes mellitus with hyperglycemia; E03.9 Hypothyroidism, unspecified; I10 Essential (primary) hypertension; K21.9 Gastro-esophageal reflux disease without esophagitis; E87.6 Hypokalemia; K90.0 Celiac disease; K44.9 Diaphragmatic hernia without obstruction or gangrene; F12.90 Cannabis use, unspecified, uncomplicated; Z88.0 Allergy status to penicillin; Z88.2 Allergy status to sulfonamides; Z90.710 Acquired absence of both cervix and uterus; Z83.3 Family history of diabetes mellitus; Z90.49 Acquired absence of other specified parts of digestive tract
CPT/HCPCS: 36415; 43239; 71045; 74176; 80048; 80053; 80061; 80202; 81001; 82565; 82962; 83036; 83605; 83690; 83880; 84443; 84484; 85025; 85610; 85730; 86703; 86850; 86900; 86901; 87040; 93005; 93306; 96365; 96375; 99291; G0378; J1450; J1815; J2250; J2405; J2470; J3480; J3490